=== PATIENT | female | born 1935 | race Caucasian/White ===

== ENCOUNTER 2018-02-25 03:45 | Inpatient (IN) | payer MEDICARE ==
[2018-02-25] VITALS (34 sets, daily range): BP systolic 104–186; BP diastolic 40–88
[~2018-02-25] VITALS: Ht 144.8 cm; Wt 45.4 kg
[2018-02-25] MEDS ORDERED: ALBUTEROL SULFATE 2.5 MG/3 ML NEBU. ONE (03:54)
[2018-02-25] MEDS ORDERED: 0.9 % SODIUM CHLORIDE 10 ML DISP.SYRIN. IV PRN (04:00)
[2018-02-25] MEDS ORDERED: FUROSEMIDE 40 MG/4 ML VIAL IVP ONE (04:00)
--- NOTE | 2018-02-25 04:02 | PHYS DOC ---
Adult General Chief Complaint Chief Complaint: respiratory distress HPI HPI Patient is a 83 year old female who presents with respiratory distress. The patient was brought to the emergency department by EMS. The patient [place] suddenly in the mall tonight with severe shortness of breath. Patient has reported history of congestive heart failure, coronary artery disease, hypertension, and COPD. Patient found to have oxygen saturation by EMS in the mid 80s. Patient also found to be profoundly hypertensive with a systolic above 200. Patient was started on CPAP and Nitropaste was applied to the chest prior to arrival. EMS reports improvement in symptoms with initial interventions. The patient has an severe respiratory distress and is unable to provide history currently but is following commands. The patient does nod when asked if she is feeling short of breath but denies chest pain currently. Review of Systems Review of Systems Constitutional: Denies fever or chills [] Eyes: Denies change in visual acuity, redness, or eye pain [] HENT: Denies nasal congestion or sore throat [] Respiratory: Shortness of breath[] Cardiovascular: Dyspnea on exertion, lower extremity swelling, denies chest pain [] GI: Denies abdominal pain, nausea, vomiting, bloody stools or diarrhea [] : Denies dysuria or hematuria [] Musculoskeletal: Denies back pain or joint pain [] Integument: Denies rash or skin lesions [] Neurologic: Denies headache, focal weakness or sensory changes [] All other systems were reviewed and found to be within normal limits, except as documented in this note. Current Medications Current Medications Current Medications Medications (Trade) Dose Ordered Sig/Freida Start Time Stop Time Status Last Admin Dose Admin Albuterol Sulfate (Ventolin) 2.5 mg STK-MED ONCE 02/25/18 03:54 02/25/18 03:55 DC Nitroglycerin/ Dextrose 250 ml @ 0 mls/hr 1X ONCE 02/25/18 04:00 02/25/18 04:01 UNV Sodium Chloride (Normal Saline Flush) 10 ml QSHIFT PRN 02/25/18 04:00 UNV Allergies Allergies Allergies Coded Allergies Type Severity Reaction Last Updated Verified pneumococcal vaccine Allergy Severe 02/25/18 Yes Physical Exam Physical Exam Constitutional: Alert, afebrile, appears in severe respiratory distress. [] HENT: Normocephalic, atraumatic, bilateral external ears normal, oropharynx moist, no oral exudates, nose normal. [] Eyes: PERRLA, EOMI, conjunctiva normal, no discharge. [] Neck: Normal range of motion, no tenderness, supple, no stridor. [] Cardiovascular:Heart rate regular rhythm, no murmur [] Lungs & Thorax: Accessory muscle usage bilaterally, prolonged expiratory phase, rales bilaterally[] Abdomen: Bowel sounds normal, soft, no tenderness, no masses, no pulsatile masses. [] Skin: Warm, dry, no erythema, no rash. [] Back: No tenderness, no CVA tenderness. [] Extremities: No tenderness, no cyanosis, no clubbing, ROM intact, 1+ pitting edema in the bilateral lower extremities. [] Neurologic: Alert and oriented X 3, normal motor function, normal sensory function, no focal deficits noted. [] Current Patient Data Vital Signs Vital Signs Date Time Temp Pulse Resp B/P (MAP) Pulse Ox O2 Delivery O2 Flow Rate FiO2 02/25/18 04:15 96 BiPAP/CPAP 02/25/18 03:59 97.4 77 36 Lab Results Laboratory Tests Test 02/25/18 04:00 White Blood Count 20.5 x10^3/uL Red Blood Count 4.97 x10^6/uL Hemoglobin 14.6 g/dL Hematocrit 44.7 % Mean Corpuscular Volume 90 fL Mean Corpuscular Hemoglobin 30 pg Mean Corpuscular Hemoglobin Concent 33 g/dL Red Cell Distribution Width 13.8 % Platelet Count 338 x10^3/uL Neutrophils (%) (Auto) 56 % Lymphocytes (%) (Auto) 33 % Monocytes (%) (Auto) 8 % Eosinophils (%) (Auto) 2 % Basophils (%) (Auto) 1 % Neutrophils # (Auto) 11.5 x10^3uL Lymphocytes # (Auto) 6.8 x10^3/uL Monocytes # (Auto) 1.6 x10^3/uL Eosinophils # (Auto) 0.4 x10^3/uL Basophils # (Auto) 0.2 x10^3/uL Segmented Neutrophils % 51 % Band Neutrophils % 4 % Lymphocytes % 40 % Monocytes % 4 % Eosinophils % 1 % Platelet Estimate Adequate Blood Gas pH 7.30 Blood Gas PCO2 62 mmHg Blood Gas PO2 203 mmHg Blood Gas HCO3 31 mmol/L Arterial Bld O2 Saturation (Calc) 100 % FiO2 60 % Sodium Level 140 mmol/L Potassium Level 4.4 mmol/L Chloride Level 100 mmol/L Carbon Dioxide Level 31 mmol/L Anion Gap 9 Blood Urea Nitrogen 11 mg/dL Creatinine 0.9 mg/dL Estimated GFR (Cockcroft-Gault) 59.5 BUN/Creatinine Ratio 12 Glucose Level 282 mg/dL Calcium Level 8.7 mg/dL Magnesium Level 1.8 mg/dL Total Bilirubin 0.5 mg/dL Aspartate Amino Transf (AST/SGOT) 39 U/L Alanine Aminotransferase (ALT/SGPT) 46 U/L Alkaline Phosphatase 113 U/L Creatine Kinase 50 U/L Creatine Kinase MB (Mass) 1.5 ng/mL Creatine Kinase MB Relative Index 3.0 % Troponin I Quantitative 0.086 ng/mL ZE-Zbs-R-Type Natriuretic Peptide 12272 pg/mL Total Protein 7.0 g/dL Albumin 3.3 g/dL Albumin/Globulin Ratio 0.9 Current Medications Medications (Trade) Dose Ordered Sig/Freida Route PRN Reason Start Time Stop Time Status Last Admin Dose Admin Sodium Chloride (Normal Saline Flush) 10 ml QSHIFT PRN IV AFTER MEDS AND BLOOD DRAWS 02/25/18 04:00 Nitroglycerin/ Dextrose 250 ml @ 0 mls/hr 1X ONCE IV 02/25/18 04:15 02/25/18 04:16 DC 02/25/18 04:17 Albuterol Sulfate (Ventolin) 2.5 mg 1X ONCE NEB 02/25/18 04:15 02/25/18 04:16 DC 02/25/18 04:30 Albuterol Sulfate (Ventolin) 2.5 mg STK-MED ONCE .ROUTE 02/25/18 03:54 02/25/18 03:55 DC Furosemide (Lasix) 80 mg 1X ONCE IVP 02/25/18 04:00 02/25/18 04:14 DC 02/25/18 04:10 EKG EKG Interpreted by me: Heart rate 75, sinus rhythm, occasional PVCs, normal axis, no acute ST elevations or depressions[] Radiology/Procedures Radiology/Procedures One view AP chest x-ray interpreted by me: Bilateral pulmonary vascular congestion, interstitial edema present, small bilateral pleural effusions[] Course & Med Decision Making Course & Med Decision Making Pertinent Labs and Imaging studies reviewed. (See chart for details) Plan arrival to the emergency department, the patient was transitioned to BiPAP therapy. After IV access was obtained, the patient was started on 80 mg of IV Lasix and started on nitroglycerin drip. Upon initiation of nitroglycerin drip, the Nitropaste was removed from the anterior chest. The patient's blood pressure responded well to IV nitroglycerin and Lasix. Patient's work of breathing has significantly improved with initial treatments and patient is stabilizing on BiPAP and nitroglycerin drip at this time. The patient's blood work and x-ray imaging supports diagnosis of acute on chronic congestive heart failure causing acute respiratory failure. The patient will need admission to the hospital for further care. I spoke with Dr. Zuniga who accepted care of patient in hospital. A consult was placed to Dr. Rivera of cardiology to follow patient in hospital. Critical care time excluding procedures: 45 minutes Dragon Disclaimer Dragon Disclaimer This electronic medical record was generated, in whole or in part, using a voice recognition dictation system. Departure Departure: Impression: Primary Impression: Acute respiratory failure with hypoxia and hypercapnia Additional Impression: Acute on chronic congestive heart failure Disposition: ADMITTED INPATIENT Admitting Physician: Dianne Zuniga Condition: GUARDED Referrals: PCP,UNKNOWN (PCP) Problem Qualifiers Additional Impression: Acute on chronic congestive heart failure Heart failure type: unspecified Qualified Codes: I50.9 - Heart failure, unspecified SHAJI CHICAS MD Feb 25, 2018 04:02
[2018-02-25] MEDS ORDERED: ALBUTEROL SULFATE 2.5 MG/3 ML NEBU. NEB ONE (04:15)
[2018-02-25] MEDS ORDERED: NITROGLYCERIN PREMIX 250 ML IV ONE (04:15)
[2018-02-25 04:22] LABS: BASO # 0.2 x10^3/uL (0.0-0.2); BASO % 1 % (0-3); EOS # 0.4 x10^3/uL (0.0-0.7); EOS % 2 % (0-3); HEMATOCRIT 44.7 % (36.0-47.0); HEMOGLOBIN 14.6 g/dL (12.0-15.5); LYMPH # 6.8 x10^3/uL (1.0-4.8); LYMPH % 33 % (24-48); MEAN CORPUSCULAR HEMOGLOBIN 30 pg (25-35); MEAN CORPUSCULAR HGB CONC 33 g/dL (31-37); MEAN CORPUSCULAR VOLUME 90 fL (79-100); MONO # 1.6 x10^3/uL (0.0-1.1); MONO % 8 % (0-9); NEUT # 11.5 x10^3uL (1.8-7.7); NEUT % 56 % (31-73); PLATELET COUNT 338 x10^3/uL (140-400); RED BLOOD COUNT 4.97 x10^6/uL (3.50-5.40); RED CELL DISTRIBUTION WIDTH 13.8 % (11.5-14.5); WHITE BLOOD COUNT 20.5 x10^3/uL (4.0-11.0)
[2018-02-25 04:45] LABS: ALBUMIN 3.3 g/dL (3.4-5.0); ALBUMIN/GLOBULIN RATIO 0.9 (1.0-1.7); CALCIUM 8.7 mg/dL (8.5-10.1); CREATININE 0.9 mg/dL (0.6-1.0); GFR 59.5; MAGNESIUM 1.8 mg/dL (1.8-2.4); POTASSIUM 4.4 mmol/L (3.5-5.1); TOTAL BILIRUBIN 0.5 mg/dL (0.2-1.0)
[2018-02-25 04:47] LABS: % BANDS 4 % (0-9); % EOS 1 % (0-5); % LYMPHS 40 % (24-48); % MONOS 4 % (0-10); % SEGS 51 % (35-66); PLT ESTIMATE ADEQUATE (ADEQUATE)
[2018-02-25 04:50] LABS: BGAS PH 7.3 (7.35-7.45)
[2018-02-25] MEDS ORDERED: ONDANSETRON PF 4 MG/2 ML VIAL. IV PRN (05:15)
[2018-02-25] MEDS ORDERED: IV NORMAL SALINE 1,000ML 1,000 ML IV SCH (05:15)
--- NOTE | 2018-02-25 06:03 | EKG ---
[address] [address] Test Date: 2018-02-25 Test Time: 04:26:09 Pat Name: SOPHIA HIGGINBOTHAM Department: Room: [facility]03 1 Gender: F Student [employer] Director: : 1935 Requested By: SHAJI CHICAS Order Number: [id number] Reading MD: King Rivera Measurements Intervals [place] Rate: 75 P: 90 NV: 140 QRS: 17 QRSD: 86 T: 71 QT: 414 QTc: 465 Interpretive Statements SINUS RHYTHM VENTRICULAR PREMATURE COMPLEX(ES) QRS(T) CONTOUR ABNORMALITY CONSISTENT WITH SEPTAL INFARCT PROBABLY OLD T ABNORMALITY IN HIGH LATERAL LEADS Electronically Signed On 03-02-2018 10:15:56 DOUBLE CUTTER by King Rivera
[2018-02-25 06:37] LABS: BGAS PH 7.33 (7.35-7.45)
--- NOTE | 2018-02-25 07:01 | RAD ---
Examination: PORTABLE CHEST 1V History: respiratory distress Comparison/Correlation: CT chest without contrast 01/18/2013 Findings: Portable upright frontal view of the chest was obtained. Heart size is normal. Hiatal hernia is moderate size. Pulmonary vasculature is borderline to mildly congested. Interstitial edema of the lung rivas noted. Consolidation involving the right lateral basilar aspect is present. No significant pleural effusions. Pulmonary hyperinflation noted. Impression: Right lateral basilar consolidation is new in the interval. Pulmonary vasculature congestion. Hiatal hernia. Electronically signed by: Anuj Green MD (02/25/2018 6:57 AM) [facility] [place]
[2018-02-25] MEDS: IPRATRPIUM/ALBUTEROL 0.5/2.5MG 3 ML NEBU. NEB SCH ×4 (08:00→20:55)
--- NOTE | 2018-02-25 09:07 | PDOC2 ---
CONSULT Date of Admission DATE: 02/25/18 TIME: 08:57 Reason for Consult: chf Problem List Problems Medical Problems: (1) Acute on chronic congestive heart failure Status: Acute (2) Acute respiratory failure with hypoxia and hypercapnia Status: Acute History of Present Illness Ms Herrera is an 83 year old female who presented via EMS this am for dyspnea. She apparenlty woke from sleep with feeling unable to breath. EMS found her with spo2 in the 80s and SBP>200. She was given NTG IV and started on BiPaP and admitted to the ICU for monitoring and treatment. Consult was called for elevated trop and heart failure. She currently remains on BiPaP with stable spo2 levels. She is very hard of hearing and a poor historian. Her daughter is at bedside but also provides very limited history. She reports breathing is improved, denies chest pain or other complaints. Her daughter reports her blood pressure is usually controlled. 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 No decreased flow related enhancement. Cardiovascular: CHF, HTN, Other (PAD) Pulmonary: COPD ENT: Other (hearing loss) Past Surgical History unknown Family History cad Social History +smoker, no known history of significant ETOH, or illicit drugs Current Medications Current Medications Sodium Chloride (Normal Saline Flush) 10 ml QSHIFT PRN IV AFTER MEDS AND BLOOD DRAWS; Start 02/25/18 at 04:00 Nitroglycerin/ Dextrose 250 ml @ 0 mls/hr 1X ONCE IV Last administered on at 04:17; Start 02/25/18 at 04:15; Stop 02/25/18 at 04:16; Status DC Albuterol Sulfate (Ventolin) 2.5 mg 1X ONCE NEB Last administered on at 04:30; Start 02/25/18 at 04:15; Stop 02/25/18 at 04:16; Status DC Albuterol Sulfate (Ventolin) 2.5 mg STK-MED ONCE .ROUTE ; Start 02/25/18 at 03: 54; Stop 02/25/18 at 03:55; Status DC Furosemide (Lasix) 80 mg 1X ONCE IVP Last administered on 02/25/18at 04:10; Start 02/25/18 at 04:00; Stop 02/25/18 at 04:14; Status DC Ondansetron HCl (Zofran) 4 mg PRN Q4HRS PRN IV NAUSEA/VOMITING; Start at 05:15; Stop 02/26/18 at 05:14 Sodium Chloride 1,000 ml @ 0 mls/hr Q0M IV ; Start 02/25/18 at 05:15; Stop at 05:14 Albuterol/ Ipratropium (Duoneb) 3 ml RTQID NEB ; Start 02/25/18 at 08:00; Stop 02/26/18 at 07:59 Enoxaparin Sodium (Lovenox 40mg Syringe) 40 mg Q24H SQ ; Start 02/25/18 at 09: 00 Allergies: Coded Allergies: pneumococcal vaccine (Verified Allergy, Severe, 02/25/18) Review of System as per HPI, otherwise limited due to BiPap, hearing loss and being a poor historian General: Alert, Cooperative, No acute distress HEENT: Atraumatic, Mucous membr. moist/pink, Other (hard of hearing) Lungs: Other (decreased throughout with bibasilar crackles) Heart: Normal S1, Normal S2, Other (no gallops, clicks or rubs) Abdomen: Normal bowel sounds, Soft, No tenderness Extremities: No cyanosis, No edema, Normal pulses Neuro: Normal speech Psych/Mental Status: Mental status NL, Mood NL VITALS Vital Signs Date Time Temp Pulse Resp B/P (MAP) Pulse Ox O2 Delivery O2 Flow Rate FiO2 02/25/18 06:27 98.0 61 28 186/69 (108) 97 BiPAP/CPAP Labs Laboratory Tests Test 02/25/18 04:00 02/25/18 05:00 02/25/18 07:49 White Blood Count 20.5 x10^3/uL (4.0-11.0) Red Blood Count 4.97 x10^6/uL (3.50-5.40) Hemoglobin 14.6 g/dL (12.0-15.5) Hematocrit 44.7 % (36.0-47.0) Mean Corpuscular Volume 90 fL (79-100) Mean Corpuscular Hemoglobin 30 pg (25-35) Mean Corpuscular Hemoglobin Concent 33 g/dL (31-37) Red Cell Distribution Width 13.8 % (11.5-14.5) Platelet Count 338 x10^3/uL (140-400) Neutrophils (%) (Auto) 56 % (31-73) Lymphocytes (%) (Auto) 33 % (24-48) Monocytes (%) (Auto) 8 % (0-9) Eosinophils (%) (Auto) 2 % (0-3) Basophils (%) (Auto) 1 % (0-3) Neutrophils # (Auto) 11.5 x10^3uL (1.8-7.7) Lymphocytes # (Auto) 6.8 x10^3/uL (1.0-4.8) Monocytes # (Auto) 1.6 x10^3/uL (0.0-1.1) Eosinophils # (Auto) 0.4 x10^3/uL (0.0-0.7) Basophils # (Auto) 0.2 x10^3/uL (0.0-0.2) Segmented Neutrophils % 51 % (35-66) Band Neutrophils % 4 % (0-9) Lymphocytes % 40 % (24-48) Monocytes % 4 % (0-10) Eosinophils % 1 % (0-5) Platelet Estimate Adequate (ADEQUATE) Blood Gas pH 7.30 (7.35-7.45) 7.33 (7.35-7.45) Blood Gas PCO2 62 mmHg (35-45) 57 mmHg (35-45) Blood Gas PO2 283 mmHg (71-100) 82 mmHg (71-100) Blood Gas HCO3 31 mmol/L (22-26) 30 mmol/L (22-26) Arterial Bld O2 Saturation (Calc) 100 % (92-99) 95 % (92-99) FiO2 60 % 30 % Sodium Level 140 mmol/L (136-145) Potassium Level 4.4 mmol/L (3.5-5.1) Chloride Level 100 mmol/L (98-107) Carbon Dioxide Level 31 mmol/L (21-32) Anion Gap 9 (6-14) Blood Urea Nitrogen 11 mg/dL (7-20) Creatinine 0.9 mg/dL (0.6-1.0) Estimated GFR (Cockcroft-Gault) 59.5 BUN/Creatinine Ratio 12 (6-20) Glucose Level 282 mg/dL (70-99) Calcium Level 8.7 mg/dL (8.5-10.1) Magnesium Level 1.8 mg/dL (1.8-2.4) Total Bilirubin 0.5 mg/dL (0.2-1.0) Aspartate Amino Transf (AST/SGOT) 39 U/L (15-37) Alanine Aminotransferase (ALT/SGPT) 46 U/L (14-59) Alkaline Phosphatase 113 U/L (46-116) Creatine Kinase 50 U/L (26-192) Creatine Kinase MB (Mass) 1.5 ng/mL (0.0-3.6) Creatine Kinase MB Relative Index 3.0 % (0-4) Troponin I Quantitative 0.086 ng/mL (0-0.055) 0.436 ng/mL (0-0.055) ZB-Vxj-M-Type Natriuretic Peptide 73822 pg/mL (0-449) Total Protein 7.0 g/dL (6.4-8.2) Albumin 3.3 g/dL (3.4-5.0) Albumin/Globulin Ratio 0.9 (1.0-1.7) Images CXR - Impression: Right lateral basilar consolidation is new in the interval. Pulmonary vasculature congestion. Hiatal hernia. EKG - Sinus rhythm, PVCs, nonspecific st/t abn Assessment/Plan 1. Nstemi - likely demand related. Angina free. No acute EKG changes. 2. acute respiratory failure, multifactorial - remains on BiPaP, room air spo2 89%. 3. acute on chronic heart failure - Unknown LVEF 4. COPD / poss PNA - mgmt per PCP 5. accelerated hypertension - improving on NTG, add ACEI and hydralazine 6. Bradycardia - mild, stable. Improving on BiPap and with lasix. Continue diuresis. Continue NTG drip and add oral meds for BP control. Monitor trops. add aspirin and heparin. No beta mckinley secondary to bradycardia. Plan to manage heart failure and consider MPI vs cath after pulmonary stable depending clinical progress. Request records. THELMA HERRERA APRN Feb 25, 2018 09:07
[2018-02-25] MEDS ORDERED: POTASSIUM CHLORIDE 20 MEQ TABLET.ER. PO SCH (09:30)
[2018-02-25] MEDS ORDERED: ASPIRIN 81 MG TAB.CHEW PO ONE (09:30)
[2018-02-25] MEDS ORDERED: LISINOPRIL 5 MG TABLET. PO SCH (09:30)
[2018-02-25] MEDS: ENOXAPARIN 40 MG/0.4 ML SYRINGE. SQ SCH (10:52)
[2018-02-25] MEDS: FUROSEMIDE 40 MG/4 ML VIAL IVP SCH ×2 (10:52→16:29)
[2018-02-25] MEDS ORDERED: KETOROLAC 30 MG/ML VIAL. IV PRN (11:15)
[2018-02-25] MEDS ORDERED: MORPHINE SULFATE 2 MG/ML DISP.SYRIN. IV PRN (11:30)
--- NOTE | 2018-02-25 11:37 | CARD ---
MR#: [id number] Date of Study: 02/25/2018 Ordering Physician: THELMA HIGGINBOTHAM, Referring Physician: MYKE SCHREIBER Tech: Amanda Spears MIRLANDE APPROVED REPORT EXAM: Two-dimensional and M-mode echocardiogram with Doppler and color Doppler. Other Information Quality : GoodHR: 52bpm Rhythm : Bradycardia INDICATION Congestive Heart Failure 2D DIMENSIONS RVDd2.4 (2.9-3.5cm)Left Atrium(2D)3.4 (1.6-4.0cm) IVSd0.9 (0.7-1.1cm)Aortic Root(2D)2.9 (2.0-3.7cm) LVDd3.8 (3.9-5.9cm)LVOT Diameter1.8 (1.8-2.4cm) PWd0.8 (0.7-1.1cm)LVDs2.9 (2.5-4.0cm) FS (%) 24.2 %SV30.9 ml M-Mode DIMENSIONS Left Atrium(MM)3.96 (2.5-4.0cm)Aortic Root2.73 (2.2-3.7cm) Aortic Valve AoV Peak Andrew.148.6cm/sAoV VTI35.5cm AO Peak GR.8.8mmHgLVOT Peak Andrew.70.4cm/s LVOT VTI 16.42cmAO Mean GR.5mmHg GALLO (VMAX)1.60qz9BDK (VTI)1.23cm2 AI P 1/2 Hpac115ly Mitral Valve MV E Btanwvcg73.0cm/sMV DECEL FMMO372eu MV A Tiiukeww89.4cm/sE/A Ratio1.2 MV A Txqbwyjv954us Pulmonary Valve PV Peak Qwogshys41.1cm/sPV Peak Grad.2mmHg Tricuspid Valve TR P. Fzgrcgld948ng/sRAP LWUYBTZP0feZr TR Peak Gr.37woThPMUO63tqUs Pulmonary Vein S1 Rsrmhgwg83.3cm/sD2 Nntnwsmw36.8cm/s LEFT VENTRICLE The Left Ventricle is borderline dilated. There is normal left ventricular wall thickness. Left ventr icle systolic function is moderately decreased. The Ejection Fraction is 35-40%. There is global hypo kinesis of the left ventricle mildly increased in the septal wall. Transmitral Doppler flow pattern i s Grade II-pseudonormal filling dynamics. RIGHT VENTRICLE The right ventricle is normal size. There is normal right ventricular wall thickness. The right ventr icular systolic function is normal. ATRIA The left atrium size is normal. The right atrium size is normal. The atrial septum is mildly aneurysm al. AORTIC VALVE The aortic valve is moderately calcified. The aortic valve is probably trileaflet. Doppler and Color Flow revealed mild aortic regurgitation. There is mild valvular aortic stenosis. Calculated aortic va lve area is 1.3 cm2 with maximum pressure gradient of 9 mmHg and mean pressure gradient of 5 mmHg. MITRAL VALVE The mitral valve is thickened but opens well. There is no evidence of mitral valve prolapse. There is no mitral valve stenosis. Doppler and Color-flow revealed mild mitral regurgitation. TRICUSPID VALVE The tricuspid valve leaflets are thickened , but open well. Doppler and Color Flow revealed mild to m oderate tricuspid regurgitation. The PA pressure was estimated at 33 mmHg. There is no tricuspid valv e prolapse or vegetation. There is no tricuspid valve stenosis. PULMONIC VALVE Pulmonic valve not well visualized. GREAT VESSELS The aortic root is normal in size. The ascending aorta is normal in size. The IVC is normal in size a nd collapses >50% with inspiration. PERICARDIAL EFFUSION There is no evidence of significant pericardial effusion. Critical Notification Critical Value: No <Conclusion> The Left Ventricle is borderline dilated. Left ventricle systolic function is moderately decreased. The Ejection Fraction is 35-40%. There is global hypokinesis of the left ventricle mildly increased in the septal wall. There is mild valvular aortic stenosis. Calculated aortic valve area is 1.3 cm2 with maximum pressure gradient of 9 mmHg and mean pressure gr adient of 5 mmHg. Doppler and Color Flow revealed mild aortic regurgitation. Doppler and Color-flow revealed mild mitral regurgitation. Doppler and Color Flow revealed mild to moderate tricuspid regurgitation. The PA pressure was estimated at 33 mmHg. Signed by : Etienne Florentino MD Electronically Approved : 02/25/2018 11:36:33
[2018-02-25 12:09] LABS: CALCIUM 8.8 mg/dL (8.5-10.1); CREATININE 0.7 mg/dL (0.6-1.0); GFR 79.5; POTASSIUM 3.8 mmol/L (3.5-5.1)
--- NOTE | 2018-02-25 12:09 | EKG ---
[address] [address] Test Date: 2018-02-25 Test Time: 10:28:17 Pat Name: SOPHIA HIGGINBOTHAM Department: Room: [facility]03 1 Gender: F Reference Investigator: SAKSHI : 1935 Requested By: THELMA HIGGINBOTHAM Order Number: [id number] Reading MD: King Rivera Measurements Intervals [place] Rate: 58 P: 90 SC: 136 QRS: -1 QRSD: 80 T: -147 QT: 430 QTc: 426 Interpretive Statements SINUS RHYTHM LEFTWARD AXIS QRS(T) CONTOUR ABNORMALITY CONSISTENT WITH SEPTAL INFARCT AGE UNDETERMINED T ABNORMALITY IN ANTEROLATERAL LEADS ABNORMAL ECG Electronically Signed On 03-02-2018 10:18:03 ADMIN SECRETARY by King Rivera
[2018-02-25 12:12] LABS: BACTERIA,URINE 0 /HPF (0-FEW); BILIRUBIN,URINE NEG (NEG); CLARITY,URINE CLEAR; COLOR,URINE YELLOW; GLUCOSE,URINE NEG (NEG); HYALINE CASTS, URINE OCC /HPF; NITRITE,URINE NEG (NEG); UROBILINOGEN,URINE 0.2 mg/dL (0.2 mg/dL); WBC,URINE RARE /HPF (0-4)
[2018-02-25] MEDS ORDERED: CLON0.1T PO (12:29)
[2018-02-25] MEDS ORDERED: SERT25TA4 PO (12:29)
[2018-02-25] MEDS ORDERED: METO-247 PO (12:29)
[2018-02-25] MEDS ORDERED: ZOLP10TA4 PO (12:29)
[2018-02-25] MEDS ORDERED: OMEP40CA5 PO (12:29)
[2018-02-25] MEDS ORDERED: LEVO25TA4 PO (12:29)
[2018-02-25] MEDS ORDERED: FURO20TA3 PO (12:29)
[2018-02-25] MEDS ORDERED: LISI40TA PO (12:29)
[2018-02-25] MEDS ORDERED: LORA0.5T PO (12:29)
[2018-02-25] MEDS ORDERED: POTA10TA10 PO (12:29)
[2018-02-25] MEDS ORDERED: AZITHROMYCIN 250 MG TABLET. PO ONE (16:45)
[2018-02-25] MEDS ORDERED: LISINOPRIL 5 MG TABLET. PO ONE (16:45)
[2018-02-25] MEDS ORDERED: LORazepam 0.5 MG TABLET PO PRN (17:15)
[2018-02-25] MEDS ORDERED: ZOLPIDEM 5 MG TABLET. PO PRN (17:30)
--- NOTE | 2018-02-25 17:38 | HP ---
ADMIT DATE: 02/25/2018 HISTORY OF PRESENT ILLNESS: The patient is an 83-year-old female patient, who came to the Emergency Room and marked respiratory distress. She was brought by the emergency medical service personnel. She awoke suddenly in the middle of the night with severe shortness of breath. By the time, she arrived to the Emergency Room, she was found to have an oxygen saturation of only 80%. She was found also to be profoundly hypertensive with a systolic pressure of more than 200. She was started on CPAP and nitro paste was applied to the chest prior to arrival. There also the emergency medical service reports improvement in her symptoms with initial intervention. She was in such severe respiratory distress. She states she is unable to provide any history and was started on BiPAP and nitroglycerin drip. She was also treated with IV diuretics and was admitted to the ICU to continue treatment and to consult the cardiology team. PAST MEDICAL HISTORY: Significant for hypertension, congestive heart failure, chronic obstructive pulmonary disease, bilateral sensorineural deafness. 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 PAST SURGICAL HISTORY: She said that she has bilateral cataract extraction, appendectomy and tonsillectomy. FAMILY HISTORY: Significant for coronary artery disease. SOCIAL HISTORY: She is , lives on her own. She has one daughter that lives nearby. She used to be a smoker, but does not drink alcohol or use any recreational drugs. ALLERGIES: She is ALLERGIC TO PNEUMOCOCCAL VACCINE. MEDICATIONS: She is currently on following medications: She is on clonidine 0.1 mg daily, metoprolol succinate 100 mg once a day, lisinopril 40 mg once a day, sertraline 25 mg daily, lorazepam 0.5 mg daily as needed for anxiety. She is on Ambien 10 mg at bedtime, potassium chloride 10 mEq once a day, furosemide 20 mg daily, omeprazole 40 mg once a day and levothyroxine sodium 25 mcg once a day. REVIEW OF SYSTEMS: As per history of present illness. PHYSICAL EXAMINATION: GENERAL: On arrival to the Emergency Room, the patient was extreme respiratory distress, tachypneic, hypoxic. VITAL SIGNS: Her heart rate was 77, blood pressure was 195/101, temperature was 97.4, respiratory rate was 36 and oxygen saturation was 80% on room air, has improved to 99% on BiPAP machine. HEAD, EYES, EARS, NOSE AND THROAT: Showed normocephalic, atraumatic. NECK: Supple. HEART: Showed normal first and second sounds. No gallop, rub or murmur. CHEST: Showed accessory muscle usage bilaterally, prolonged expiratory phase and bilateral crepitation. ABDOMEN: Slightly distended, soft, nontender. No guarding or rigidity. No organomegaly. All hernial orifice intact. Bowel sounds normal. NEUROLOGIC: She is very hard of hearing, otherwise all cranial nerves intact. EXTREMITIES: She moves extremities without difficulty. Examination of the extremities showed no clubbing, cyanosis with mild bilateral lower extremity edema. LABORATORY DATA: While in the Emergency Room, she was started on BiPAP machine and started nitro drip and IV Lasix. Her EKG showed that she was in sinus rhythm with occasional PVCs, normal axis, and no acute ST elevation. Chest x-ray showed she has bilateral pulmonary vascular congestion, interstitial edema present. Small bilateral pleural effusion and her lab work showed that her white cell count was high at 20,500, hemoglobin 14.6, hematocrit 44.7, MCV 90 and platelet count of 338,000. Her chemistry showed that her serum sodium was 140, potassium 4.4, chloride 100, bicarbonate 31, anion gap of 9, BUN 11, creatinine 0.9, estimated GFR was 59 mL per minute. Her glucose was 282, calcium was 8.7, magnesium was 1.8. Total bilirubin, AST, ALT, alkaline phosphatase were normal. Her first set of cardiac enzymes showed troponin to be less than is 0.086. [place] [address]. Total protein 7, albumin was 3.3. Her blood gases showed that her pH was 7.30, pCO2 of 62, pO2 of 283, bicarbonate 31, and oxygen saturation was 100% on FiO2 of 60%. Her urinalysis showed the urine was yellow, clear with a pH of 6.5, specific gravity of 1.010. The urine was negative for protein, glucose, ketone, blood, nitrite and leukocyte esterase. There are 11-20 rbc's, rare wbc's, and no bacteria. Her fasting lipid profile showed her serum triglycerides 110. Total cholesterol was 280, LDL cholesterol 191, VLDL was 22, and HDL cholesterol was 67, the ratio was 4. The chest x-ray showed that the patient has right lateral basilar consolidation is new in the interval, pulmonary vascular congestion, hiatal hernia. ASSESSMENT AND PLAN: The patient was admitted with acute hypoxic hypercapnic respiratory failure, accelerated hypertension, acute congestive heart failure as well as questionable right lower lobe pneumonia. She has also leukocytosis. The patient was treated with IV Lasix as well as nitroglycerin drip. Her iron medications were resumed. Apparently, her blood pressure has much improved. By the time, I saw her, she was off the BiPAP and she was on oxygen by nasal cannula. We did consult the heavy mobile equipment repairer. She is in fact had an echocardiogram, showing that she has left ventricle is borderline dilated. She has left ventricular systolic function is moderately decreased ejection fraction 35-40%. There is global hypokinesis of the left ventricle with mildly increased in the septal wall. She has mild valvular aortic stenosis, aortic valve area is 1.3 square cm with maximum pressure gradient of 9 mmHg, mean pressure gradient of 5 mmHg. She has also mild aortic regurgitation, mild mitral regurgitation, [id number] tricuspid regurgitation. Pulmonary artery pressure was estimated at 33 mmHg. We will do 2 more sets of cardiac enzyme and obviously await the evaluation by the heavy mobile equipment repairer. MYKE SCHREIBER MD DR: TATYANA/aditi JOB#: [id number] / [id number]
[2018-02-25] MEDS: ATORVASTATIN CALCIUM 20 MG TABLET PO SCH (20:48)
[2018-02-25] MEDS: LACTOBACILLUS RHAMNOSUS GG 1 CAPSULE. PO SCH (20:48)
[2018-02-25] MEDS: hydrALAZINE 25 MG TABLET PO SCH (20:48)
[2018-02-25] MEDS ORDERED: ZOLPIDEM 5 MG TABLET. PO SCH (21:00)
[2018-02-25] MEDS: ZOLPIDEM 5 MG TABLET. PO SCH (23:26)
[2018-02-26] VITALS (23 sets, daily range): BP systolic 98–193; BP diastolic 46–82
[2018-02-26] MEDS: hydrALAZINE 20 MG/ML VIAL. IV PRN ×2 (05:28→20:15)
[2018-02-26] MEDS: LEVOTHYROXINE 25 MCG TABLET. PO SCH (05:31)
[2018-02-26] MEDS: IPRATRPIUM/ALBUTEROL 0.5/2.5MG 3 ML NEBU. NEB SCH ×2 (05:52→20:25)
[2018-02-26 06:25] LABS: BASO % 1 % (0-3); EOS # 0.1 x10^3/uL (0.0-0.7); EOS % 1 % (0-3); HEMATOCRIT 40.5 % (36.0-47.0); HEMOGLOBIN 13.5 g/dL (12.0-15.5); LYMPH # 1.3 x10^3/uL (1.0-4.8); LYMPH % 20 % (24-48); MEAN CORPUSCULAR HEMOGLOBIN 29 pg (25-35); MEAN CORPUSCULAR HGB CONC 33 g/dL (31-37); MEAN CORPUSCULAR VOLUME 88 fL (79-100); MONO # 0.6 x10^3/uL (0.0-1.1); MONO % 9 % (0-9); NEUT # 4.7 x10^3uL (1.8-7.7); NEUT % 70 % (31-73); PLATELET COUNT 208 x10^3/uL (140-400); RED BLOOD COUNT 4.59 x10^6/uL (3.50-5.40); RED CELL DISTRIBUTION WIDTH 13.7 % (11.5-14.5); WHITE BLOOD COUNT 6.7 x10^3/uL (4.0-11.0)
[2018-02-26 06:30] LABS: ALBUMIN 2.8 g/dL (3.4-5.0); ALBUMIN/GLOBULIN RATIO 0.7 (1.0-1.7); CALCIUM 8.4 mg/dL (8.5-10.1); CREATININE 0.7 mg/dL (0.6-1.0); GFR 79.5; POTASSIUM 3.1 mmol/L (3.5-5.1); TOTAL BILIRUBIN 0.4 mg/dL (0.2-1.0); TOTAL PROTEIN 6.6 g/dL (6.4-8.2)
[2018-02-26] MEDS ORDERED: POTASSIUM CHLORIDE 10 MEQ TABLET.ER. PO SCH (08:00)
[2018-02-26] MEDS: LISINOPRIL 20 MG TABLET PO SCH (08:43)
[2018-02-26] MEDS: LACTOBACILLUS RHAMNOSUS GG 1 CAPSULE. PO SCH ×2 (08:44→20:16)
[2018-02-26] MEDS: SERTRALINE 25 MG TABLET. PO SCH (08:44)
[2018-02-26] MEDS: METOPROLOL SUCC 24HR ER 50 MG TAB.ER.24H. PO SCH (08:45)
[2018-02-26] MEDS: PANTOPRAZOLE 40 MG TABLET. PO SCH (08:45)
[2018-02-26] MEDS: ENOXAPARIN 40 MG/0.4 ML SYRINGE. SQ SCH (08:45)
[2018-02-26] MEDS: ASPIRIN ENTERIC COATED 325 MG TABLET.DR. PO SCH (08:45)
[2018-02-26] MEDS: hydrALAZINE 25 MG TABLET PO SCH (08:45)
[2018-02-26] MEDS: FUROSEMIDE 40 MG/4 ML VIAL IVP SCH (08:46)
[2018-02-26] MEDS ORDERED: POTASSIUM CHLORIDE 20 MEQ TABLET.ER. PO SCH (09:00)
[2018-02-26] MEDS ORDERED: LISINOPRIL 10 MG TABLET PO SCH (09:00)
--- NOTE | 2018-02-26 09:05 | PDOC ---
PROGRESS NOTES Diagnosis Problem Problems Medical Problems: (1) Acute on chronic congestive heart failure Status: Acute (2) Acute respiratory failure with hypoxia and hypercapnia Status: Acute Assessment Problems Medical Problems: (1) Acute on chronic congestive heart failure Status: Acute (2) Acute respiratory failure with hypoxia and hypercapnia Status: Acute 1. Nstemi - demand related. Remains Angina free. No acute EKG changes. Plan for outpatient MPI once acute illness resolved. 2. acute respiratory failure, multifactorial - on nasal cannula oxygen and maintaining oxygen saturation.. 3. acute on chronic, systolic and diastolic heart failure - EF 35-40% with global hypokinesis. Currently compensated clinically. Repeat CXR, if vascular congestion resolved, will decrease lasix and change to PO. 4. COPD / PNA - continued mgmt per PCP 5. accelerated hypertension - low pressure this am. Discontinue hydralazine. Continue home antihypertensives and monitor. may need reduction if pressure remains borderline. 6. Bradycardia - resolved. She is currently on home metoprolol dose. If bradycardia reoccurs, suggest decreased dosing. Subjective c/o increased cough with clear sputum. c/o nausea and near vomiting due to cough. Difficult to catch breath after coughing episode. Denies other complaints. Objective Vital Signs Date Time Temp Pulse Resp B/P (MAP) Pulse Ox O2 Delivery O2 Flow Rate FiO2 02/26/18 08:45 77 135/55 02/26/18 08:02 98.6 98 Nasal Cannula 2.0 02/26/18 05:30 21 Intake and Output 02/26/18 07:00 Intake Total 662.84 ml Output Total 2405 ml Balance -1742.16 ml Intake Oral 570 ml IV Total 92.84 ml Output Urine Total 2405 ml Abdomen: Normal bowel sounds, Soft, No tenderness Heart: Normal S1, Normal S2, Other (+murmur) Extremities: No cyanosis, Other (trace edema) General: Alert, Oriented X3, Cooperative, mild distress HEENT: Atraumatic, EOMI, Mucous membr. moist/pink Lungs: Other (lungs essentially clear, upper airway rhonchi noted which clears with cough) Neuro: Normal speech Psych/Mental Status: Mental status NL, Mood NL Review of Relevant I have reviewed the following items ayanna (where applicable) has been applied. Labs Laboratory Tests Test 02/25/18 04:00 02/25/18 05:00 02/25/18 07:49 02/25/18 11:30 White Blood Count 20.5 x10^3/uL (4.0-11.0) Red Blood Count 4.97 x10^6/uL (3.50-5.40) Hemoglobin 14.6 g/dL (12.0-15.5) Hematocrit 44.7 % (36.0-47.0) Mean Corpuscular Volume 90 fL (79-100) Mean Corpuscular Hemoglobin 30 pg (25-35) Mean Corpuscular Hemoglobin Concent 33 g/dL (31-37) Red Cell Distribution Width 13.8 % (11.5-14.5) Platelet Count 338 x10^3/uL (140-400) Neutrophils (%) (Auto) 56 % (31-73) Lymphocytes (%) (Auto) 33 % (24-48) Monocytes (%) (Auto) 8 % (0-9) Eosinophils (%) (Auto) 2 % (0-3) Basophils (%) (Auto) 1 % (0-3) Neutrophils # (Auto) 11.5 x10^3uL (1.8-7.7) Lymphocytes # (Auto) 6.8 x10^3/uL (1.0-4.8) Monocytes # (Auto) 1.6 x10^3/uL (0.0-1.1) Eosinophils # (Auto) 0.4 x10^3/uL (0.0-0.7) Basophils # (Auto) 0.2 x10^3/uL (0.0-0.2) Segmented Neutrophils % 51 % (35-66) Band Neutrophils % 4 % (0-9) Lymphocytes % 40 % (24-48) Monocytes % 4 % (0-10) Eosinophils % 1 % (0-5) Platelet Estimate Adequate (ADEQUATE) Blood Gas pH 7.30 (7.35-7.45) 7.33 (7.35-7.45) Blood Gas PCO2 62 mmHg (35-45) 57 mmHg (35-45) Blood Gas PO2 283 mmHg (71-100) 82 mmHg (71-100) Blood Gas HCO3 31 mmol/L (22-26) 30 mmol/L (22-26) Arterial Bld O2 Saturation (Calc) 100 % (92-99) 95 % (92-99) FiO2 60 % 30 % Sodium Level 140 mmol/L (136-145) Potassium Level 4.4 mmol/L (3.5-5.1) Chloride Level 100 mmol/L (98-107) Carbon Dioxide Level 31 mmol/L (21-32) Anion Gap 9 (6-14) Blood Urea Nitrogen 11 mg/dL (7-20) Creatinine 0.9 mg/dL (0.6-1.0) Estimated GFR (Cockcroft-Gault) 59.5 BUN/Creatinine Ratio 12 (6-20) Glucose Level 282 mg/dL (70-99) Calcium Level 8.7 mg/dL (8.5-10.1) Magnesium Level 1.8 mg/dL (1.8-2.4) 1.8 mg/dL (1.8-2.4) Total Bilirubin 0.5 mg/dL (0.2-1.0) Aspartate Amino Transf (AST/SGOT) 39 U/L (15-37) Alanine Aminotransferase (ALT/SGPT) 46 U/L (14-59) Alkaline Phosphatase 113 U/L (46-116) Creatine Kinase 50 U/L (26-192) Creatine Kinase MB (Mass) 1.5 ng/mL (0.0-3.6) Creatine Kinase MB Relative Index 3.0 % (0-4) Troponin I Quantitative 0.086 ng/mL (0-0.055) 0.436 ng/mL (0-0.055) UZ-Mqa-[id number]-Type Natriuretic Peptide 68711 pg/mL (0-449) Total Protein 7.0 g/dL (6.4-8.2) Albumin 3.3 g/dL (3.4-5.0) Albumin/Globulin Ratio 0.9 (1.0-1.7) Triglycerides Level 110 mg/dL (0-150) Cholesterol Level 280 mg/dL (0-200) LDL Cholesterol, Calculated 191 mg/dL (0-100) VLDL Cholesterol, Calculated 22 mg/dL (0-40) Non-HDL Cholesterol Calculated 213 mg/dL (0-129) HDL Cholesterol 67 mg/dL (40-60) Cholesterol/HDL Ratio 4.0 Urine Collection Type Unknown Urine Color Yellow Urine Clarity Clear Urine pH 6.5 Urine Specific [place] 1.010 Urine Protein Neg (NEG-TRACE) Urine Glucose (UA) Neg mg/dL (NEG) Urine Ketones (Stick) Neg mg/dL (NEG) Urine Blood Mod (NEG) Urine Nitrite Neg (NEG) Urine Bilirubin Neg (NEG) Urine Urobilinogen Dipstick 0.2 mg/dL (0.2 mg/dL) Urine Leukocyte Esterase Trace (NEG) Urine RBC 11-20 /HPF (0-2) Urine WBC Rare /HPF (0-4) Urine Squamous Epithelial Cells None /LPF Urine Bacteria 0 /HPF (0-FEW) Urine Hyaline Casts Occ /HPF Urine Mucus Slight /LPF Nasal Screen MRSA (PCR) Negative (Negative) Test 02/25/18 11:40 02/25/18 15:25 02/26/18 05:39 Sodium Level 141 mmol/L (136-145) 131 mmol/L (136-145) Potassium Level 3.8 mmol/L (3.5-5.1) 3.1 mmol/L (3.5-5.1) Chloride Level 99 mmol/L (98-107) 91 mmol/L (98-107) Carbon Dioxide Level 34 mmol/L (21-32) 35 mmol/L (21-32) Anion Gap 8 (6-14) 5 (6-14) Blood Urea Nitrogen 11 mg/dL (7-20) 15 mg/dL (7-20) Creatinine 0.7 mg/dL (0.6-1.0) 0.7 mg/dL (0.6-1.0) Estimated GFR (Cockcroft-Gault) 79.5 79.5 Glucose Level 118 mg/dL (70-99) 105 mg/dL (70-99) Calcium Level 8.8 mg/dL (8.5-10.1) 8.4 mg/dL (8.5-10.1) Troponin I Quantitative 0.521 ng/mL (0-0.055) Lactic Acid Level 1.2 mmol/L (0.4-2.0) White Blood Count 6.7 x10^3/uL (4.0-11.0) Red Blood Count 4.59 x10^6/uL (3.50-5.40) Hemoglobin 13.5 g/dL (12.0-15.5) Hematocrit 40.5 % (36.0-47.0) Mean Corpuscular Volume 88 fL (79-100) Mean Corpuscular Hemoglobin 29 pg (25-35) Mean Corpuscular Hemoglobin Concent 33 g/dL (31-37) Red Cell Distribution Width 13.7 % (11.5-14.5) Platelet Count 208 x10^3/uL (140-400) Neutrophils (%) (Auto) 70 % (31-73) Lymphocytes (%) (Auto) 20 % (24-48) Monocytes (%) (Auto) 9 % (0-9) Eosinophils (%) (Auto) 1 % (0-3) Basophils (%) (Auto) 1 % (0-3) Neutrophils # (Auto) 4.7 x10^3uL (1.8-7.7) Lymphocytes # (Auto) 1.3 x10^3/uL (1.0-4.8) Monocytes # (Auto) 0.6 x10^3/uL (0.0-1.1) Eosinophils # (Auto) 0.1 x10^3/uL (0.0-0.7) Basophils # (Auto) 0.0 x10^3/uL (0.0-0.2) BUN/Creatinine Ratio 21 (6-20) Magnesium Level 1.5 mg/dL (1.8-2.4) Total Bilirubin 0.4 mg/dL (0.2-1.0) Aspartate Amino Transf (AST/SGOT) 21 U/L (15-37) Alanine Aminotransferase (ALT/SGPT) 27 U/L (14-59) Alkaline Phosphatase 83 U/L (46-116) Total Protein 6.6 g/dL (6.4-8.2) Albumin 2.8 g/dL (3.4-5.0) Albumin/Globulin Ratio 0.7 (1.0-1.7) Medications Current Medications Sodium Chloride (Normal Saline Flush) 10 ml QSHIFT PRN IV AFTER MEDS AND BLOOD DRAWS; Start 02/25/18 at 04:00 Nitroglycerin/ Dextrose 250 ml @ 0 mls/hr 1X ONCE IV Last administered on at 04:17; Start 02/25/18 at 04:15; Stop 02/25/18 at 04:16; Status DC Albuterol Sulfate (Ventolin) 2.5 mg 1X ONCE NEB Last administered on at 04:30; Start 02/25/18 at 04:15; Stop 02/25/18 at 04:16; Status DC Albuterol Sulfate (Ventolin) 2.5 mg STK-MED ONCE .ROUTE ; Start 02/25/18 at 03: 54; Stop 02/25/18 at 03:55; Status DC Furosemide (Lasix) 80 mg 1X ONCE IVP Last administered on 02/25/18at 04:10; Start 02/25/18 at 04:00; Stop 02/25/18 at 04:14; Status DC Ondansetron HCl (Zofran) 4 mg PRN Q4HRS PRN IV NAUSEA/VOMITING; Start at 05:15; Stop 02/26/18 at 05:14; Status DC Sodium Chloride 1,000 ml @ 0 mls/hr Q0M IV ; Start 02/25/18 at 05:15; Stop at 05:14; Status DC Albuterol/ Ipratropium (Duoneb) 3 ml RTQID NEB Last administered on 02/26/18at 05:52; Start 02/25/18 at 08:00; Stop 02/26/18 at 08:00; Status DC Enoxaparin Sodium (Lovenox 40mg Syringe) 40 mg Q24H SQ Last administered on at 08:45; Start 02/25/18 at 09:00 Aspirin (Aspirin Enteric Coated) 325 mg DAILYWBKFT PO Last administered on at 08:45; Start 02/26/18 at 08:00 Aspirin (Children'S Aspirin) 324 mg 1X ONCE PO Last administered on at 10:50; Start 02/25/18 at 09:30; Stop 02/25/18 at 09:35; Status DC Lisinopril (Prinivil) 5 mg DAILY PO Last administered on 02/25/18at 10:51; Start 02/25/18 at 09:30; Stop 02/25/18 at 16:04; Status DC Furosemide (Lasix) 40 mg BID92 IVP Last administered on 02/26/18at 08:46; Start 02/25/18 at 09:30 Potassium Chloride (Klor-Con) 20 meq DAILYWBKFT PO Last administered on at 10:53; Start 02/25/18 at 09:30; Stop 02/26/18 at 07:33; Status DC Hydralazine HCl (Apresoline) 10 mg PRN Q4HRS PRN IV ELEVATED BP, SEE COMMENTS Last administered on 02/26/18at 05:28; Start 02/25/18 at 09:30 Ketorolac Tromethamine (Toradol 30mg Vial) 30 mg PRN Q6HRS PRN IV PAIN Last administered on 02/25/18at 13:32; Start 02/25/18 at 11:15; Stop 03/02/18 at 11 :14 Morphine Sulfate (Morphine 2mg Syringe) 2 mg PRN Q2HR PRN IV PAIN Last administered on 02/25/18at 13:29; Start 02/25/18 at 11:30 Lisinopril (Prinivil) 10 mg DAILY PO ; Start 02/26/18 at 09:00; Stop 02/26/18 at 09:00; Status DC Lisinopril (Prinivil) 5 mg 1X ONCE PO Last administered on 02/25/18 16:29; Start 02/25/18 at 16:45; Stop 02/25/18 at 16:46; Status DC Hydralazine HCl (Apresoline) 25 mg BID PO Last administered on 02/26/18at 08:45 ; Start 02/25/18 at 21:00 Atorvastatin Calcium (Lipitor) 40 mg QHS PO Last administered on 02/25/18at 20: 48; Start 02/25/18 at 21:00 Ceftriaxone Sodium 1 gm/ Sodium Chloride 50 ml @ 100 mls/hr Q24H IV Last administered on 02/25/18at 17:00; Start 02/25/18 at 17:00 Azithromycin (Zithromax) 500 mg 1X ONCE PO Last administered on 02/25/18 16: 45; Start 02/25/18 at 16:45; Stop 02/25/18 at 16:46; Status DC Levothyroxine Sodium (Synthroid) 25 mcg DAILY06 PO Last administered on 05:31; Start 02/26/18 at 06:00 Lisinopril (Prinivil) 40 mg DAILY PO Last administered on 02/26/18at 08:43; Start 02/26/18 at 09:00 Lorazepam (Ativan) 0.5 mg BID PRN PO ANXIETY / AGITATION; Start 02/25/18 at 17 :15 Metoprolol Succinate (Toprol Xl) 100 mg DAILY PO Last administered on at 08:45; Start 02/26/18 at 09:00 Pantoprazole Sodium (Protonix) 40 mg DAILYAC PO Last administered on at 08:45; Start 02/26/18 at 07:30 Potassium Chloride (Klor-Con) 10 meq DAILYWBKFT PO ; Start 02/26/18 at 08:00; Stop 02/26/18 at 08:00; Status DC Sertraline HCl (Zoloft) 25 mg DAILY PO Last administered on 02/26/18at 08:44; Start 02/26/18 at 09:00 Zolpidem Tartrate (Ambien) 10 mg QHS PO ; Start 02/25/18 at 21:00; Stop at 21:00; Status DC Lactobacillus Rhamnosus (Culturelle) 1 cap BID PO Last administered on at 08:44; Start 02/25/18 at 21:00 Zolpidem Tartrate (Ambien) 5 mg QHS PO ; Start 02/25/18 at 21:00 Zolpidem Tartrate (Ambien) 5 mg PRN QHS PRN PO INSOMNIA; Start 02/25/18 at 17: 30 Potassium Chloride (Klor-Con) 40 meq DAILY PO Last administered on 02/26/18at 08:42; Start 02/26/18 at 09:00 Active Scripts Active Reported Levothyroxine Sodium 25 Mcg Tablet 25 Mcg PO DAILY Lisinopril 40 Mg Tablet 40 Mg PO DAILY Clonidine Hcl 0.1 Mg Tablet 0.1 Mg PO DAILY Metoprolol Succinate ( Xl ) (Metoprolol Succinate) 100 Mg Tab.er.24h 100 Mg PO DAILY Zolpidem Tartrate 10 Mg Tablet 10 Mg PO DAILY Lorazepam 0.5 Mg Tablet 0.5 Mg PO PRN PRN Omeprazole 40 Mg Capsule.dr 40 Mg PO DAILY Furosemide 20 Mg Tablet 20 Mg PO DAILY Potassium Chloride 10 Meq Tablet.er 10 Meq PO DAILY07 Sertraline Hcl 25 Mg Tablet 25 Mg PO DAILY Vitals/I & O Vital Sign - Last 24 Hours 02/25/18 02/25/18 02/25/18 02/25/18 09:30 10:00 10:28 10:30 Pulse 59 60 58 Resp 21 B/P (MAP) 168/73 (104) 165/85 (111) 171/65 (100) Pulse Ox 98 97 100 97 O2 Delivery BiPAP/CPAP 02/25/18 02/25/18 02/25/18 02/25/18 10:51 11:00 11:30 12:08 Pulse 65 56 54 Resp 25 24 B/P (MAP) 165/63 180/68 (105) 145/58 (87) Pulse Ox 98 96 O2 Delivery Bi-pap 02/25/18 02/25/18 02/25/18 02/25/18 12:11 12:30 13:00 13:29 Temp 98.0 Pulse 58 58 58 Resp 21 24 20 25 B/P (MAP) 165/64 (97) 175/65 (101) 159/80 (106) Pulse Ox 98 98 98 99 O2 Delivery BiPAP/CPAP BiPAP/CPAP 02/25/18 02/25/18 02/25/18 02/25/18 13:30 13:54 14:00 15:01 Temp 98.5 Pulse 58 66 58 Resp 21 24 23 B/P (MAP) 144/62 (89) 166/76 (106) 131/53 (79) Pulse Ox 98 98 98 98 O2 Delivery BiPAP/CPAP BiPAP/CPAP Nasal Cannula O2 Flow Rate 2.0 02/25/18 02/25/18 02/25/18 02/25/18 16:08 16:10 16:29 16:30 Pulse 57 54 54 Resp 22 22 B/P (MAP) 133/52 (79) 158/88 158/88 (111) Pulse Ox 98 97 O2 Delivery Nasal Cannula Nasal Cannula O2 Flow Rate 2.0 2.0 02/25/18 02/25/18 02/25/18 02/25/18 16:54 17:00 18:00 19:00 Pulse 56 58 60 Resp 24 22 24 B/P (MAP) 151/72 (98) 157/76 (103) 121/45 (70) Pulse Ox 98 98 94 O2 Delivery Nasal Cannula Nasal Cannula O2 Flow Rate 2.0 2.0 02/25/18 02/25/18 02/25/18 02/25/18 19:15 19:30 19:45 20:00 Pulse 58 56 62 Resp 24 24 B/P (MAP) 138/56 (83) 106/59 (75) 171/66 (101) Pulse Ox 92 94 O2 Delivery Nasal Cannula Nasal Cannula Nasal Cannula Nasal Cannula O2 Flow Rate 2.0 2.0 2.0 2.0 02/25/18 02/25/18 02/25/18 02/25/18 20:00 20:15 20:48 20:55 Temp 98.1 Pulse 54 60 57 Resp 21 B/P (MAP) 157/52 (87) 161/62 (95) 171/71 Pulse Ox 99 99 99 O2 Delivery Nasal Cannula Nasal Cannula Nasal Cannula O2 Flow Rate 2.0 2.0 2.0 02/25/18 02/25/18 02/25/18 02/25/18 21:00 21:30 22:00 22:30 Pulse 54 56 56 58 Resp 20 22 28 23 B/P (MAP) 182/79 (113) 122/47 (72) 112/44 (66) 117/56 (76) Pulse Ox 100 97 98 97 O2 Delivery Nasal Cannula Nasal Cannula Nasal Cannula Nasal Cannula O2 Flow Rate 2.0 2.0 2.0 2.0 02/25/18 02/25/18 02/26/18 02/26/18 23:00 23:30 00:00 00:00 Pulse 56 56 54 Resp 23 25 24 B/P (MAP) 122/48 (72) 104/40 (61) 124/49 (74) Pulse Ox 96 97 97 O2 Delivery Nasal Cannula Nasal Cannula Nasal Cannula Nasal Cannula O2 Flow Rate 2.0 2.0 2.0 2.0 02/26/18 02/26/18 02/26/18 02/26/18 00:01 00:30 01:00 01:30 Temp 98.4 Pulse 54 54 58 Resp 22 22 20 B/P (MAP) 158/58 (91) 146/60 (88) 140/50 (80) Pulse Ox 98 98 99 O2 Delivery Nasal Cannula Nasal Cannula Nasal Cannula O2 Flow Rate 2.0 2.0 2.0 02/26/18 02/26/18 02/26/18 02/26/18 02:00 02:30 03:00 03:30 Pulse 54 54 56 54 Resp 21 21 19 16 B/P (MAP) 138/55 (82) 161/63 (95) 149/64 (92) 123/52 (75) Pulse Ox 98 98 98 98 O2 Delivery Nasal Cannula Nasal Cannula Nasal Cannula Nasal Cannula O2 Flow Rate 2.0 2.0 2.0 2.0 02/26/18 02/26/18 02/26/18 02/26/18 04:00 04:00 04:30 05:00 Temp 98.6 Pulse 58 54 56 Resp 20 22 22 B/P (MAP) 169/69 (102) 155/61 (92) 162/68 (99) Pulse Ox 97 97 98 O2 Delivery Nasal Cannula Nasal Cannula Nasal Cannula Nasal Cannula O2 Flow Rate 2.0 2.0 2.0 2.0 02/26/18 02/26/18 02/26/18 02/26/18 05:28 05:30 05:53 06:00 Pulse 63 56 62 Resp 21 B/P (MAP) 162/68 149/58 (88) 116/48 (70) Pulse Ox 98 97 98 O2 Delivery Nasal Cannula Nasal Cannula Nasal Cannula O2 Flow Rate 2.0 1.0 2.0 02/26/18 02/26/18 02/26/18 02/26/18 07:53 08:02 08:43 08:45 Temp 98.6 Pulse 62 77 77 B/P (MAP) 116/48 (70) 135/55 135/55 Pulse Ox 98 O2 Delivery Nasal Cannula Nasal Cannula O2 Flow Rate 2.0 2.0 02/26/18 08:45 Pulse 77 B/P (MAP) 135/55 Intake and Output 02/25/18 02/25/18 02/26/18 15:00 23:00 07:00 Intake Total 240 ml 326.84 ml 96 ml Output Total 1875 ml 370 ml 160 ml Balance -1635 ml -43.16 ml -64 ml THELMA HIGGINBOTHAM APRN Feb 26, 2018 09:05
[2018-02-26] MEDS ORDERED: MAGNESIUM SULFATE 2GM 50 ML IV ONE ×2 (09:30→10:30)
--- NOTE | 2018-02-26 09:32 | RAD ---
Indication:CHF, PT GETTING BREATHING TREATMENT AT TIME OF X-RAY TECHNIQUE:Portable AP chest X-ray COMPARISON:02/25/2018 FINDINGS: Heart is normal in size. Lungs are hyperinflated but without focal consolidation. No pneumothorax or pleural effusion. Large sliding hiatal hernia. Aortic knob calcifications suggesting systemic arterial hypertension. There is mild dextroscoliosis of the midthoracic spine. Otherwise, visualized bony thorax is within normal limits. IMPRESSION: 1. Findings of COPD. 2. Large sliding hiatal hernia. Electronically signed by: [place] DO (02/26/2018 9:28 AM) [facility]
[2018-02-26] MEDS ORDERED: POTASSIUM CHLORIDE 20 MEQ TABLET.ER. PO ONE (10:15)
[2018-02-26 12:23] LABS: CALCIUM 8.7 mg/dL (8.5-10.1); CREATININE 0.9 mg/dL (0.6-1.0); GFR 59.5; POTASSIUM 4.6 mmol/L (3.5-5.1)
[2018-02-26] MEDS: POTASSIUM CHLORIDE 20 MEQ TABLET.ER. PO SCH ×2 (13:09→20:15)
[2018-02-26] MEDS: MAGNESIUM OXIDE 400 MG TABLET PO SCH ×2 (14:00→20:16)
[2018-02-26] MEDS ORDERED: IPRATRPIUM/ALBUTEROL 0.5/2.5MG 3 ML NEBU. ONE ×2 (15:07→20:17)
--- NOTE | 2018-02-26 18:18 | PN ---
DATE: 02/26/2018 SUBJECTIVE: The patient is resting slightly propped up in bed, no apparent distress. She is awake, alert, stated that she is feeling much better, although apparently she continued to have cough with just scanty whitish sputum. PHYSICAL EXAMINATION: GENERAL: When I examined her, she looked pale, but no jaundice, cyanosis, or thyromegaly. No jugular venous distension. No limb edema. VITAL SIGNS: Her heart rate was 70, blood pressure was 98/46, temperature was 98.6, respiratory rate was 20, and oxygen saturation was 96% on 2 liters of oxygen. HEAD, EYES, EARS, NOSE AND THROAT: Showed normocephalic, atraumatic. NECK: Supple. HEART: Showed normal first and second heart sounds. No gallop, rub or murmur. CHEST: Clear to auscultation. No crepitation or rhonchi. ABDOMEN: Distended, soft, nontender. NEUROLOGIC: She was awake, alert, responding, very hard of hearing, but otherwise all the cranial nerves intact. She moves extremities without difficulty. Her intake over the last 24 hours was ____ output was 2400. LABORATORY DATA: As of this morning, her serum sodium is low at 131, potassium 3.1, chloride 91, bicarbonate 35, anion gap of 5, BUN 15, creatinine 0.7, estimated GFR was 79 mL per minute. Her glucose was 105, calcium was 8.4, magnesium was 1.5. Total bilirubin, AST, ALT, alkaline phosphatase were normal. Total protein was 6.6, albumin 2.8. She has 3 sets of cardiac enzyme showed that her Troponin has been rising from 0.086 to 0.52. ASSESSMENT AND PLAN: 1. Mepzu-ea-ccabadh systolic congestive heart failure. 2. Acute hypoxic hypercapnic respiratory failure. 3. The patient has also accelerated hypertension. 4. Possible right lower lobe pneumonia. 5. Perhaps non-ST segment elevation myocardial infarction. The patient is definitely much better. Her blood pressure is much better controlled. Her heart failure is much well compensated. The patient has multiple other medical problems including hyponatremia and hypokalemia, likely due to over diuresis and hypomagnesemia. Also, we will supplement her potassium and magnesium and once her electrolytes were replenished and the patient can be hopefully discharged home tomorrow and she probably needs an outpatient stress test. MYKE SCHREIBER MD DR: Odilon JOB#: [id number] / [id number]
[2018-02-26] MEDS: ATORVASTATIN CALCIUM 20 MG TABLET PO SCH (20:15)
[2018-02-26] MEDS: ZOLPIDEM 5 MG TABLET. PO SCH (20:16)
[2018-02-27] VITALS (10 sets, daily range): BP systolic 133–185; BP diastolic 58–81
[2018-02-27] MEDS: hydrALAZINE 20 MG/ML VIAL. IV PRN ×2 (00:57→20:54)
[2018-02-27] MEDS: LEVOTHYROXINE 25 MCG TABLET. PO SCH (04:40)
[2018-02-27] MEDS: IPRATRPIUM/ALBUTEROL 0.5/2.5MG 3 ML NEBU. NEB SCH ×4 (05:31→20:45)
[2018-02-27] MEDS: LISINOPRIL 20 MG TABLET PO SCH (06:44)
[2018-02-27] MEDS: METOPROLOL SUCC 24HR ER 50 MG TAB.ER.24H. PO SCH (06:45)
[2018-02-27 07:07] LABS: BASO % 1 % (0-3); EOS % 1 % (0-3); HEMATOCRIT 42.2 % (36.0-47.0); LYMPH # 1.3 x10^3/uL (1.0-4.8); LYMPH % 17 % (24-48); MEAN CORPUSCULAR HEMOGLOBIN 29 pg (25-35); MEAN CORPUSCULAR HGB CONC 33 g/dL (31-37); MEAN CORPUSCULAR VOLUME 89 fL (79-100); MONO # 0.7 x10^3/uL (0.0-1.1); MONO % 9 % (0-9); NEUT # 5.7 x10^3uL (1.8-7.7); NEUT % 73 % (31-73); PLATELET COUNT 243 x10^3/uL (140-400); RED BLOOD COUNT 4.76 x10^6/uL (3.50-5.40); WHITE BLOOD COUNT 7.8 x10^3/uL (4.0-11.0)
[2018-02-27 07:20] LABS: ALBUMIN/GLOBULIN RATIO 0.8 (1.0-1.7); CALCIUM 8.9 mg/dL (8.5-10.1); CREATININE 0.7 mg/dL (0.6-1.0); GFR 79.5; POTASSIUM 4.4 mmol/L (3.5-5.1); TOTAL BILIRUBIN 0.5 mg/dL (0.2-1.0); TOTAL PROTEIN 6.8 g/dL (6.4-8.2)
[2018-02-27] MEDS ORDERED: FUROSEMIDE 20 MG/2 ML VIAL IVP SCH (09:00)
[2018-02-27] MEDS: FUROSEMIDE 20 MG TABLET PO SCH (09:38)
[2018-02-27] MEDS: MAGNESIUM OXIDE 400 MG TABLET PO SCH ×3 (09:38→20:51)
[2018-02-27] MEDS: LACTOBACILLUS RHAMNOSUS GG 1 CAPSULE. PO SCH ×2 (09:38→20:51)
[2018-02-27] MEDS: ASPIRIN ENTERIC COATED 325 MG TABLET.DR. PO SCH (09:38)
[2018-02-27] MEDS: POTASSIUM CHLORIDE 20 MEQ TABLET.ER. PO SCH ×3 (09:39→20:53)
[2018-02-27] MEDS: SERTRALINE 25 MG TABLET. PO SCH (09:40)
[2018-02-27] MEDS: PANTOPRAZOLE 40 MG TABLET. PO SCH (09:41)
[2018-02-27] MEDS: ENOXAPARIN 40 MG/0.4 ML SYRINGE. SQ SCH (09:43)
--- NOTE | 2018-02-27 11:07 | PN ---
DATE: 02/27/2018 SUBJECTIVE: The patient is sitting, slightly propped up in bed, in no apparent respiratory distress. She is awake, alert, very hard of hearing. On questioning her, denied any complaint. Nursing staff did not voice any concerns, she had an uneventful night. PHYSICAL EXAMINATION: GENERAL: When I examined her, she looked pale, somewhat cachectic, but no jaundice, cyanosis, or thyromegaly. No jugular venous distension. No lower limb edema. VITAL SIGNS: Her heart rate was 57, blood pressure was 185/63, temperature was 98.4, respiratory rate was 16 and oxygen saturation was 94% on 2 liters of oxygen. HEAD, EYES, EARS, NOSE AND THROAT: Showed normocephalic, atraumatic. NECK: Supple. HEART: Showed normal first and second heart sounds with no gallop, rub or murmur. CHEST: Shows central trachea, equally reduced expansion, reduced air entry, vesicular sounds, very few crepitations bilaterally, more on the left. NEUROLOGIC: She is very hard of hearing, but otherwise all other cranial nerves are intact. She moves extremities without difficulty. She ambulates with a walker. Her intake over the last 24 hours was 662, output was 2400. LABORATORY DATA: As of this morning; her serum sodium was 139, potassium 4.4, chloride 99, bicarbonate 32, anion gap of 8, BUN 16, creatinine 0.7, estimated GFR was 79 mL per minute. Her glucose was 127, calcium was 8.9. Total bilirubin, AST, ALT, alkaline phosphatase were normal. Her total protein was 6.8, albumin 3. White cell count was 7800, hemoglobin 14, hematocrit 42, MCV 89 and platelet count of 243,000. So far, her urine culture is negative and her blood cultures are so far negative. ASSESSMENT: 1. Acute on chronic systolic congestive heart failure. 2. Resolving acute hypoxic hypercapnic respiratory failure, improving. 3. The patient continued to have suboptimally controlled hypertension. 4. Right lower lobe pneumonia. 5. Non-ST segment elevation myocardial infarction. 6. Hyponatremia, hypokalemia and hypomagnesemia, all improved. PLAN: To switch her to oral Lasix. The patient can be transferred to the floor, continue with physical and occupational therapy. She obviously will require an outpatient stress test. MYKE SCHREIBER MD DR: Odilon JOB#: [id number] / [id number]
[2018-02-27] MEDS: AZITHROMYCIN 250 MG TABLET. PO SCH (11:39)
[2018-02-27] MEDS: ATORVASTATIN CALCIUM 20 MG TABLET PO SCH (20:51)
[2018-02-27] MEDS: ZOLPIDEM 5 MG TABLET. PO SCH (20:51)
[2018-02-28] MEDS: IPRATRPIUM/ALBUTEROL 0.5/2.5MG 3 ML NEBU. NEB SCH ×4 (05:25→21:00)
[2018-02-28] MEDS: LEVOTHYROXINE 25 MCG TABLET. PO SCH (05:30)
[2018-02-28] MEDS: hydrALAZINE 20 MG/ML VIAL. IV PRN ×2 (05:41→15:39)
[2018-02-28 06:29] VITALS: BP 205/46
[2018-02-28 06:47] VITALS: BP 164/70
[2018-02-28] MEDS: METOPROLOL SUCC 24HR ER 50 MG TAB.ER.24H. PO SCH (08:08)
[2018-02-28] MEDS: ENOXAPARIN 40 MG/0.4 ML SYRINGE. SQ SCH (08:08)
[2018-02-28] MEDS: POTASSIUM CHLORIDE 20 MEQ TABLET.ER. PO SCH ×3 (08:09→20:37)
[2018-02-28] MEDS: LISINOPRIL 20 MG TABLET PO SCH (08:09)
[2018-02-28] MEDS: FUROSEMIDE 20 MG TABLET PO SCH (08:09)
[2018-02-28] MEDS: LACTOBACILLUS RHAMNOSUS GG 1 CAPSULE. PO SCH ×2 (08:10→20:37)
[2018-02-28] MEDS: MAGNESIUM OXIDE 400 MG TABLET PO SCH ×3 (08:10→20:36)
[2018-02-28] MEDS: PANTOPRAZOLE 40 MG TABLET. PO SCH (08:10)
[2018-02-28] MEDS: ASPIRIN ENTERIC COATED 325 MG TABLET.DR. PO SCH (08:10)
[2018-02-28] MEDS: AZITHROMYCIN 250 MG TABLET. PO SCH (08:10)
[2018-02-28] MEDS: SERTRALINE 25 MG TABLET. PO SCH (08:10)
[2018-02-28 11:34] VITALS: BP 174/65
--- NOTE | 2018-02-28 12:28 | PN ---
DATE: 02/28/2018 SUBJECTIVE: The patient is resting, slightly propped up in bed, in no apparent distress. On questioning her, she said that she did well overnight. She has had a shower today and she did feel somewhat short of breath. In fact, she has not required any oxygen last night and this morning, she is now on 1 liter of oxygen by nasal cannula. OBJECTIVE: GENERAL: When I examined her, she looked pale, somewhat cachectic, but no jaundice, cyanosis, or thyromegaly. No jugular venous distension. No limb edema. VITAL SIGNS: Her heart rate was 58, blood pressure was 164/70, temperature was 97.6, respiratory rate was 16, and oxygen saturation was 97% on 1 liters of oxygen by nasal cannula. HEAD, EYES, EARS, NOSE AND THROAT: Showed normocephalic, atraumatic. NECK: Supple. HEART: Showed normal first and second heart sounds with no gallop, rub or murmur. CHEST: Clear to auscultation. No crepitation or rhonchi. ABDOMEN: Distended, soft, nontender. No guarding or rigidity. No organomegaly. All hernial orifice intact. Bowel sounds normal. NEUROLOGIC: She is hard of hearing, but otherwise all cranial nerves intact. She moves extremities without difficulty. She ambulates with a walker. Her intake was 1340, output was 825. LABORATORY DATA: As of yesterday showed a serum sodium 139, potassium 4.4, chloride was 99, bicarbonate 32, anion gap of 8, BUN 16, creatinine 0.7, estimated GFR was 79 mL per minute. Her glucose 127, calcium was 8.9. Total bilirubin, AST, ALT, alkaline phosphatase were normal. Total protein was 6.8, albumin 3. Her white cell count is down to 7800, hemoglobin 14, hematocrit 42, MCV 89 and platelet count 243,000. ASSESSMENT: 1. Acute on chronic systolic congestive heart failure, improving. 2. Resolving acute hypoxic hypercapnic respiratory failure. 3. Hypertension. Continues to be suboptimally controlled. 4. Right lower lobe pneumonia. 5. ST segment elevation myocardial infarction. 6. Hyponatremia, hypokalemia, and hypomagnesemia, all resolved. PLAN: I will repeat her chest x-ray. I would also start her on scheduled hydralazine, will start with 10 mg and increase the dose to achieve a better blood pressure control. She remains stable tomorrow. She can be discharged home with an arrangement for outpatient stress test. MYKE SCHREIBER MD DR: TATYANA/aditi JOB#: [id number] / [id number]
--- NOTE | 2018-02-28 12:32 | RAD ---
Chest radiograph 02/28/2018 12:09 PM INDICATION: Worsening cough and shortness of breath COMPARISON: February 26, 2018 TECHNIQUE: Frontal and lateral views of the chest are provided. FINDINGS: The cardiomediastinal silhouette is within normal limits. Pulmonary emphysematous changes are suspected. There is hyperexpansion of the lungs. There is improved aeration of the left lung base. There is a small to moderate hiatal hernia which appear similar. No pulmonary vascular congestion or pneumothorax. Apical pleural parenchymal scarring is identified. IMPRESSION: COPD changes with improved aeration of the left lung. Electronically signed by: Jeanette Haskins MD (02/28/2018 12:28 PM) [facility]
[2018-02-28] MEDS: hydrALAZINE 10 MG TABLET PO SCH ×2 (13:50→20:38)
[2018-02-28 15:45] VITALS: BP 151/62
[2018-02-28 19:34] VITALS: BP 152/54
[2018-02-28] MEDS: ZOLPIDEM 5 MG TABLET. PO SCH (20:36)
[2018-02-28] MEDS: ATORVASTATIN CALCIUM 20 MG TABLET PO SCH (20:37)
[2018-02-28 22:10] VITALS: BP 132/56
[2018-03-01 05:23] VITALS: BP 138/65
[2018-03-01] MEDS: IPRATRPIUM/ALBUTEROL 0.5/2.5MG 3 ML NEBU. NEB SCH ×2 (05:49→10:27)
[2018-03-01] MEDS: LEVOTHYROXINE 25 MCG TABLET. PO SCH (06:25)
[2018-03-01 06:40] LABS: BASO % 1 % (0-3); EOS % 1 % (0-3); HEMATOCRIT 42.4 % (36.0-47.0); HEMOGLOBIN 13.9 g/dL (12.0-15.5); LYMPH # 1.5 x10^3/uL (1.0-4.8); LYMPH % 23 % (24-48); MEAN CORPUSCULAR HEMOGLOBIN 29 pg (25-35); MEAN CORPUSCULAR HGB CONC 33 g/dL (31-37); MEAN CORPUSCULAR VOLUME 89 fL (79-100); MONO # 0.6 x10^3/uL (0.0-1.1); MONO % 10 % (0-9); NEUT # 4.1 x10^3uL (1.8-7.7); NEUT % 66 % (31-73); PLATELET COUNT 297 x10^3/uL (140-400); RED BLOOD COUNT 4.77 x10^6/uL (3.50-5.40); RED CELL DISTRIBUTION WIDTH 13.9 % (11.5-14.5); WHITE BLOOD COUNT 6.3 x10^3/uL (4.0-11.0)
[2018-03-01 06:42] LABS: CREATININE 0.7 mg/dL (0.6-1.0); GFR 79.5
[2018-03-01] MEDS: PANTOPRAZOLE 40 MG TABLET. PO SCH (08:56)
[2018-03-01] MEDS: LACTOBACILLUS RHAMNOSUS GG 1 CAPSULE. PO SCH (08:57)
[2018-03-01] MEDS: AZITHROMYCIN 250 MG TABLET. PO SCH (08:57)
[2018-03-01] MEDS: ASPIRIN ENTERIC COATED 325 MG TABLET.DR. PO SCH (08:57)
[2018-03-01] MEDS: MAGNESIUM OXIDE 400 MG TABLET PO SCH (08:58)
[2018-03-01] MEDS: hydrALAZINE 10 MG TABLET PO SCH (08:58)
[2018-03-01] MEDS: SERTRALINE 25 MG TABLET. PO SCH (08:59)
[2018-03-01] MEDS: LISINOPRIL 20 MG TABLET PO SCH (08:59)
[2018-03-01] MEDS: FUROSEMIDE 20 MG TABLET PO SCH (09:00)
[2018-03-01] MEDS: ENOXAPARIN 40 MG/0.4 ML SYRINGE. SQ SCH (09:00)
[2018-03-01] MEDS: METOPROLOL SUCC 24HR ER 50 MG TAB.ER.24H. PO SCH (09:00)
--- NOTE | 2018-03-01 09:56 | PDOC ---
PROGRESS NOTES Diagnosis Problem Problems Medical Problems: (1) Acute on chronic congestive heart failure Status: Acute (2) Acute respiratory failure with hypoxia and hypercapnia Status: Acute Assessment Problems Medical Problems: (1) Acute on chronic congestive heart failure Status: Acute (2) Acute respiratory failure with hypoxia and hypercapnia Status: Acute 1. Nstemi - demand related. Remains Angina free. No acute EKG changes. Plan for outpatient MPI in a couple weeks when respiratory status back to baseline. 2. acute respiratory failure, multifactorial - on nasal cannula oxygen and maintaining oxygen saturation.. 3. acute on chronic, systolic and diastolic heart failure - EF 35-40% with global hypokinesis. Remains compensated clinically on oral lasix. Decrease potassium supplement. 4. COPD / PNA - continued mgmt per PCP 5. accelerated hypertension - BP controlled on current meds. 6. Bradycardia - resolved. She is currently on home metoprolol dose with mild bradycardia. No significant symptoms related to rate. Consider outpatient MCT. Subjective up with PT this am. wants to go home. no chest pain, breathing better and on only 0.5 l of oxygen by nasal cannula. no lightheadedness or palpitations. Objective Vital Signs Date Time Temp Pulse Resp B/P (MAP) Pulse Ox O2 Delivery O2 Flow Rate FiO2 03/01/18 09:00 56 138/65 03/01/18 05:50 95 Nasal Cannula 0.5 03/01/18 05:23 97.8 16 Intake and Output 03/01/18 07:00 Intake Total 800 ml Balance 800 ml Intake Oral 800 ml # Voids 5 Abdomen: Normal bowel sounds, Soft, No tenderness Heart: Normal S1, Normal S2, Other (no gallops, clicks or rubs) General: Alert, Oriented X3, Cooperative, No acute distress HEENT: Atraumatic, EOMI, Mucous membr. moist/pink Lungs: Other (decreased, no crackles, wheezes or ronchi) Neuro: Normal speech, Strength at 5/5 X4 ext Psych/Mental Status: Mental status NL, Mood NL Review of Relevant I have reviewed the following items ayanna (where applicable) has been applied. Labs Laboratory Tests Test 03/01/18 06:05 White Blood Count 6.3 x10^3/uL (4.0-11.0) Red Blood Count 4.77 x10^6/uL (3.50-5.40) Hemoglobin 13.9 g/dL (12.0-15.5) Hematocrit 42.4 % (36.0-47.0) Mean Corpuscular Volume 89 fL (79-100) Mean Corpuscular Hemoglobin 29 pg (25-35) Mean Corpuscular Hemoglobin Concent 33 g/dL (31-37) Red Cell Distribution Width 13.9 % (11.5-14.5) Platelet Count 297 x10^3/uL (140-400) Neutrophils (%) (Auto) 66 % (31-73) Lymphocytes (%) (Auto) 23 % (24-48) Monocytes (%) (Auto) 10 % (0-9) Eosinophils (%) (Auto) 1 % (0-3) Basophils (%) (Auto) 1 % (0-3) Neutrophils # (Auto) 4.1 x10^3uL (1.8-7.7) Lymphocytes # (Auto) 1.5 x10^3/uL (1.0-4.8) Monocytes # (Auto) 0.6 x10^3/uL (0.0-1.1) Eosinophils # (Auto) 0.0 x10^3/uL (0.0-0.7) Basophils # (Auto) 0.0 x10^3/uL (0.0-0.2) Sodium Level 138 mmol/L (136-145) Potassium Level 5.0 mmol/L (3.5-5.1) Chloride Level 101 mmol/L (98-107) Carbon Dioxide Level 30 mmol/L (21-32) Anion Gap 7 (6-14) Blood Urea Nitrogen 18 mg/dL (7-20) Creatinine 0.7 mg/dL (0.6-1.0) Estimated GFR (Cockcroft-Gault) 79.5 Glucose Level 112 mg/dL (70-99) Calcium Level 9.0 mg/dL (8.5-10.1) Microbiology 02/25/18 Blood Culture - Preliminary, Resulted NO GROWTH AFTER 3 DAYS... 02/25/18 Urine Culture - Final, Complete 02/25/18 Urine Culture Result 1 (SIGIFREDO) - Final, Complete Medications Current Medications Sodium Chloride (Normal Saline Flush) 10 ml QSHIFT PRN IV AFTER MEDS AND BLOOD DRAWS; Start 02/25/18 at 04:00 Nitroglycerin/ Dextrose 250 ml @ 0 mls/hr 1X ONCE IV Last administered on at 04:17; Start 02/25/18 at 04:15; Stop 02/25/18 at 04:16; Status DC Albuterol Sulfate (Ventolin) 2.5 mg 1X ONCE NEB Last administered on at 04:30; Start 02/25/18 at 04:15; Stop 02/25/18 at 04:16; Status DC Albuterol Sulfate (Ventolin) 2.5 mg STK-MED ONCE .ROUTE ; Start 02/25/18 at 03: 54; Stop 02/25/18 at 03:55; Status DC Furosemide (Lasix) 80 mg 1X ONCE IVP Last administered on 02/25/18at 04:10; Start 02/25/18 at 04:00; Stop 02/25/18 at 04:14; Status DC Ondansetron HCl (Zofran) 4 mg PRN Q4HRS PRN IV NAUSEA/VOMITING; Start at 05:15; Stop 02/26/18 at 05:14; Status DC Sodium Chloride 1,000 ml @ 0 mls/hr Q0M IV ; Start 02/25/18 at 05:15; Stop at 05:14; Status DC Albuterol/ Ipratropium (Duoneb) 3 ml RTQID NEB Last administered on 02/26/18at 05:52; Start 02/25/18 at 08:00; Stop 02/26/18 at 08:00; Status DC Enoxaparin Sodium (Lovenox 40mg Syringe) 40 mg Q24H SQ Last administered on at 09:00; Start 02/25/18 at 09:00 Aspirin (Aspirin Enteric Coated) 325 mg DAILYWBKFT PO Last administered on at 08:57; Start 02/26/18 at 08:00 Aspirin (Children'S Aspirin) 324 mg 1X ONCE PO Last administered on at 10:50; Start 02/25/18 at 09:30; Stop 02/25/18 at 09:35; Status DC Lisinopril (Prinivil) 5 mg DAILY PO Last administered on 02/25/18at 10:51; Start 02/25/18 at 09:30; Stop 02/25/18 at 16:04; Status DC Furosemide (Lasix) 40 mg BID92 IVP Last administered on 02/26/18at 08:46; Start 02/25/18 at 09:30; Stop 02/26/18 at 10:06; Status DC Potassium Chloride (Klor-Con) 20 meq DAILYWBKFT PO Last administered on at 10:53; Start 02/25/18 at 09:30; Stop 02/26/18 at 07:33; Status DC Hydralazine HCl (Apresoline) 10 mg PRN Q4HRS PRN IV ELEVATED BP, SEE COMMENTS Last administered on 02/28/18at 15:39; Start 02/25/18 at 09:30 Ketorolac Tromethamine (Toradol 30mg Vial) 30 mg PRN Q6HRS PRN IV PAIN Last administered on 02/25/18at 13:32; Start 02/25/18 at 11:15; Stop 03/02/18 at 11 :14 Morphine Sulfate (Morphine 2mg Syringe) 2 mg PRN Q2HR PRN IV PAIN Last administered on 02/25/18at 13:29; Start 02/25/18 at 11:30 Lisinopril (Prinivil) 10 mg DAILY PO ; Start 02/26/18 at 09:00; Stop 02/26/18 at 09:00; Status DC Lisinopril (Prinivil) 5 mg 1X ONCE PO Last administered on 02/25/18at 16:29; Start 02/25/18 at 16:45; Stop 02/25/18 at 16:46; Status DC Hydralazine HCl (Apresoline) 25 mg BID PO Last administered on 02/26/18at 08:45 ; Start 02/25/18 at 21:00; Stop 02/26/18 at 10:06; Status DC Atorvastatin Calcium (Lipitor) 40 mg QHS PO Last administered on 02/28/18at 20: 37; Start 02/25/18 at 21:00 Ceftriaxone Sodium 1 gm/ Sodium Chloride 50 ml @ 100 mls/hr Q24H IV Last administered on 02/28/18at 17:11; Start 02/25/18 at 17:00 Azithromycin (Zithromax) 500 mg 1X ONCE PO Last administered on 02/25/18at 16: 45; Start 02/25/18 at 16:45; Stop 02/25/18 at 16:46; Status DC Levothyroxine Sodium (Synthroid) 25 mcg DAILY06 PO Last administered on at 06:25; Start 02/26/18 at 06:00 Lisinopril (Prinivil) 40 mg DAILY PO Last administered on 03/01/18at 08:59; Start 02/26/18 at 09:00 Lorazepam (Ativan) 0.5 mg BID PRN PO ANXIETY / AGITATION Last administered on 02/28/18at 08:10; Start 02/25/18 at 17:15 Metoprolol Succinate (Toprol Xl) 100 mg DAILY PO Last administered on at 09:00; Start 02/26/18 at 09:00 Pantoprazole Sodium (Protonix) 40 mg DAILYAC PO Last administered on at 08:56; Start 02/26/18 at 07:30 Potassium Chloride (Klor-Con) 10 meq DAILYWBKFT PO ; Start 02/26/18 at 08:00; Stop 02/26/18 at 08:00; Status DC Sertraline HCl (Zoloft) 25 mg DAILY PO Last administered on 03/01/18at 08:59; Start 02/26/18 at 09:00 Zolpidem Tartrate (Ambien) 10 mg QHS PO ; Start 02/25/18 at 21:00; Stop at 21:00; Status DC Lactobacillus Rhamnosus (Culturelle) 1 cap BID PO Last administered on at 08:57; Start 02/25/18 at 21:00 Zolpidem Tartrate (Ambien) 5 mg QHS PO Last administered on 02/28/18at 20:36; Start 02/25/18 at 21:00 Zolpidem Tartrate (Ambien) 5 mg PRN QHS PRN PO INSOMNIA Last administered on at 23:28; Start 02/25/18 at 17:30 Potassium Chloride (Klor-Con) 40 meq DAILY PO Last administered on 02/26/18at 08:42; Start 02/26/18 at 09:00; Stop 02/27/18 at 09:29; Status DC Magnesium Sulfate 50 ml @ 25 mls/hr 1X ONCE IV Last administered on at 09:12; Start 02/26/18 at 09:30; Stop 02/26/18 at 11:29; Status DC Furosemide (Lasix) 20 mg DAILY IVP ; Start 02/27/18 at 09:00; Stop 02/27/18 at 09:27; Status DC Potassium Chloride (Klor-Con) 40 meq 1X ONCE PO Last administered on at 10:42; Start 02/26/18 at 10:15; Stop 02/26/18 at 10:38; Status DC Potassium Chloride (Klor-Con) 20 meq TID PO Last administered on 02/28/18at 20: 37; Start 02/26/18 at 14:00; Stop 03/01/18 at 09:01; Status DC Azithromycin (Zithromax) 250 mg DAILY PO Last administered on 03/01/18at 08:57 ; Start 02/27/18 at 11:00 Magnesium Sulfate 50 ml @ 25 mls/hr 1X ONCE IV ; Start 02/26/18 at 10:30; Stop 02/26/18 at 12:29; Status DC Magnesium Oxide (Magnesium Oxide) 400 mg TID PO Last administered on at 08:58; Start 02/26/18 at 14:00 Albuterol/ Ipratropium (Duoneb) 3 ml STK-MED ONCE .ROUTE Last administered on 02/26/18at 15:10; Start 02/26/18 at 15:07; Stop 02/26/18 at 15:08; Status DC Albuterol/ Ipratropium (Duoneb) 3 ml RTQID NEB Last administered on 02/27/18at 05:31; Start 02/26/18 at 20:30; Stop 02/27/18 at 10:44; Status DC Albuterol/ Ipratropium (Duoneb) 3 ml STK-MED ONCE .ROUTE Last administered on 02/26/18at 20:20; Start 02/26/18 at 20:17; Stop 02/26/18 at 20:18; Status DC Furosemide (Lasix) 20 mg DAILY PO Last administered on 03/01/18at 09:00; Start 02/27/18 at 09:30 Albuterol/ Ipratropium (Duoneb) 3 ml RTQID NEB Last administered on 03/01/18at 05:49; Start 02/27/18 at 11:00 Hydralazine HCl (Apresoline) 10 mg TID PO Last administered on 03/01/18at 08:58 ; Start 02/28/18 at 14:00 Potassium Chloride (Klor-Con) 20 meq BID PO ; Start 03/01/18 at 21:00 Active Scripts Active Reported Levothyroxine Sodium 25 Mcg Tablet 25 Mcg PO DAILY Lisinopril 40 Mg Tablet 40 Mg PO DAILY Clonidine Hcl 0.1 Mg Tablet 0.1 Mg PO DAILY Metoprolol Succinate ( Xl ) (Metoprolol Succinate) 100 Mg Tab.er.24h 100 Mg PO DAILY Zolpidem Tartrate 10 Mg Tablet 10 Mg PO DAILY Lorazepam 0.5 Mg Tablet 0.5 Mg PO PRN PRN Omeprazole 40 Mg Capsule.dr 40 Mg PO DAILY Furosemide 20 Mg Tablet 20 Mg PO DAILY Potassium Chloride 10 Meq Tablet.er 10 Meq PO DAILY07 Sertraline Hcl 25 Mg Tablet 25 Mg PO DAILY Vitals/I & O Vital Sign - Last 24 Hours 02/28/18 02/28/18 02/28/18 02/28/18 10:57 11:34 13:50 15:39 Temp 98.8 Pulse 60 60 60 Resp 20 B/P (MAP) 174/65 (101) 174/65 174/65 Pulse Ox 97 96 O2 Delivery Nasal Cannula Nasal Cannula O2 Flow Rate 1.0 1.0 02/28/18 02/28/18 02/28/18 02/28/18 15:45 16:12 19:34 20:38 Temp 98.0 97.7 Pulse 62 82 82 Resp 20 20 B/P (MAP) 151/62 (91) 152/54 (86) 152/54 Pulse Ox 97 97 99 O2 Delivery Nasal Cannula Nasal Cannula Nasal Cannula O2 Flow Rate 1.0 1.0 1.0 02/28/18 02/28/18 03/01/18 03/01/18 21:00 22:10 05:23 05:50 Temp 98.4 97.8 Pulse 68 56 Resp 20 16 B/P (MAP) 132/56 (81) 138/65 (89) Pulse Ox 96 96 94 95 O2 Delivery Nasal Cannula Nasal Cannula Nasal Cannula Nasal Cannula O2 Flow Rate 0.5 1.0 2.0 0.5 03/01/18 03/01/18 03/01/18 08:58 08:59 09:00 Pulse 56 56 56 B/P (MAP) 138/65 138/65 138/65 Intake and Output 02/28/18 02/28/18 03/01/18 15:00 23:00 07:00 Intake Total 440 ml 360 ml Balance 440 ml 360 ml THELMA HIGGINBOTHAM [employer] Mar 01, 2018 09:56
[2018-03-01 11:26] VITALS: BP 95/52
[2018-03-01] MEDS ORDERED: POTA20TA4 PO (11:33)
[2018-03-01] MEDS ORDERED: CEFP200T PO (11:33)
[2018-03-01] MEDS ORDERED: AZIT250T PO (11:33)
--- NOTE | 2018-03-01 12:15 | DS ---
DATE OF DISCHARGE: 03/01/2018 HOSPITAL COURSE: The patient is an 83-year-old female patient, who was admitted on 02/25/2018 through the Emergency Room with marked respiratory distress. She awoke suddenly in the middle of the night with severe shortness of breath. By the time she arrived to the Emergency Room, she was found to have an oxygen saturation of only 80%. She was found of be profoundly hypertensive with a systolic pressure more than 200. She was started on CPAP and nitro paste and was admitted. The emergency medical service reports improvement in her symptoms with initial intervention. She was in such severe respiratory distress. She was unable to provide any history and was started on BiPAP machine and nitroglycerin drip as well as IV direct, will admit to the ICU. She was in fact found to be in acute hypercapnic respiratory failure, exyub-hu-hvikttf systolic congestive heart failure, accelerated hypertension and was found also to have right lower lobe pneumonia for which she was started on IV Rocephin and Zithromax and questionable non-ST segment elevation myocardial infarction. It could be secondary to demand ischemia and she did actually very well. PHYSICAL EXAMINATION: GENERAL: When I saw her this morning, she was sitting comfortably in her chair, in no apparent respiratory distress. She was pale, but not jaundiced, no stenosis, thyromegaly. No jugular venous distension. No lower limb edema. VITAL SIGNS: Her heart rate was 66, blood pressure was 95/52, temperature was 97.7, respiratory rate was 20, and oxygen saturation was 95% on 1 liter of oxygen. HEAD, EYES, EARS, NOSE AND THROAT: Showed she is normocephalic, atraumatic. NECK: Supple. HEART: Showed normal first and second heart sounds. No gallop or murmur. CHEST: Clear to auscultation. No crepitation or rhonchi. ABDOMEN: Distended, soft, tender. NEUROLOGIC: She was hard of hearing, otherwise all cranial nerves intact. She ambulates with a walker with minimal assistance. LABORATORY DATA: Her lab work this morning showed a white cell count of 6300, hemoglobin 14, hematocrit 42, MCV 89 and platelet count of 297,000. As of this morning, her serum sodium was 138, potassium 5, chloride 101, bicarbonate 30, anion gap of 7, BUN 18, creatinine 0.7, estimated GFR was 79, glucose 119 and calcium was 9. DISCHARGE MEDICATIONS: She was discharged home to continue on following medications: Azithromycin 250 mg once a day for 5 more days, cefpodoxime or Vantin 200 mg twice a day for 5 days, potassium chloride 20 mEq once a day, levothyroxine sodium 25 mcg daily, lisinopril 40 mg once a day, lorazepam 0.5 mg daily as needed for anxiety, metoprolol succinate 100 mg daily, omeprazole 40 mg daily, sertraline 25 mg once a day and Ambien 5 mg at bedtime. FINAL DISCHARGE DIAGNOSES: 1. Acute on chronic systolic congestive heart failure, resolved. 2. Acute hypoxic hypercapnic respiratory failure, resolved. 3. Hypertension, much better controlled. 4. Right lower lobe pneumonia, resolving. 5. Non-ST segment elevation myocardial infarction. 6. Hyponatremia, hypokalemia and hypomagnesemia, all resolved. The patient will be discharged home with oxygen. She should follow with the cardiology team for outpatient stress test. MYKE SCHREIBER MD DR: TATYANA/aditi JOB#: [id number] / [id number]
[2018-03-01] MEDS ORDERED: POTASSIUM CHLORIDE 20 MEQ TABLET.ER. PO SCH (21:00)
== END 2018-03-01 14:02 | disposition home health service (06) | DRG 871 ==
LOC: ER 03:45 → ICU 04:56 → 1 SOUTH 02-27 10:10
PROVIDERS: ADMIT Internal Medicine; ATTEND Internal Medicine
PROC: 5A09357 Assistance with Respiratory Ventilation, Less than 24 Consecutive Hours, Continuous Positive Airway Pressure (ICD-10-PCS; principal; 2018-02-25)
DX: A41.9 Sepsis, unspecified organism (principal); I21.4 Non-ST elevation (NSTEMI) myocardial infarction; I50.43 Acute on chronic combined systolic (congestive) and diastolic (congestive) heart failure; J96.02 Acute respiratory failure with hypercapnia; J96.01 Acute respiratory failure with hypoxia; J18.9 Pneumonia, unspecified organism; E87.1 Hypo-osmolality and hyponatremia; J44.0 Chronic obstructive pulmonary disease with (acute) lower respiratory infection; I11.0 Hypertensive heart disease with heart failure; E83.42 Hypomagnesemia; E87.6 Hypokalemia; H90.5 Unspecified sensorineural hearing loss; I08.3 Combined rheumatic disorders of mitral, aortic and tricuspid valves; I25.10 Atherosclerotic heart disease of native coronary artery without angina pectoris; I49.3 Ventricular premature depolarization; K44.9 Diaphragmatic hernia without obstruction or gangrene; T50.2X5A Adverse effect of carbonic-anhydrase inhibitors, benzothiadiazides and other diuretics, initial encounter; Z87.891 Personal history of nicotine dependence; Z82.49 Family history of ischemic heart disease and other diseases of the circulatory system; Z98.42 Cataract extraction status, left eye; Z98.41 Cataract extraction status, right eye; Z88.7 Allergy status to serum and vaccine; Z79.899 Other long term (current) drug therapy; Z90.49 Acquired absence of other specified parts of digestive tract
CPT/HCPCS: 36415; 36600; 71045; 71046; 80048; 80053; 80061; 81001; 82553; 82803; 83605; 83735; 83880; 84484; 85007; 85025; 87040; 87086; 87641; 93005; 93306; 94618; 94640; 94660; 96365; 96375; J0360; J0456; J0696; J1650; J1885; J1940; J2270; J3475; J3490; J7613; J7620; 97110; 97530; 99291-25

== ENCOUNTER → 2018-06-01 | Outpatient (CLI) | payer MEDICARE ==
[~2018-06-01] MED LIST: AZIT250T PO; CEFP200T PO; CLON0.1T PO; FURO20TA3 PO; LEVO25TA4 PO; LISI40TA PO; LORA0.5T PO; METO-247 PO; OMEP40CA5 PO; POTA10TA10 PO; POTA20TA4 PO; SERT25TA4 PO; ZOLP10TA4 PO
--- NOTE | 2018-06-01 13:46 | RAD ---
Exam : Carotid Duplex with Grayscale Ultrasound and Spectral and Color Doppler Analysis 06/01/2018 1:39 PM Clinical Indications: prior carotid Doppler ultrasound 05-19-16 Comparison study: Carotid Doppler May 19, 2016. PQRS Compliance Statement - Stenosis calculations for CT, MR and conventional angiography are based upon measurement of the distal ICA diameter in accordance with the NASCET methodology. Stenosis calculations for carotid ultrasound studies are derived from validated velocity criteria which are known to correlate with the NASCET methodology. Findings: The common, internal and external carotid arteries were examined by grayscale, color and spectral Doppler ultrasound. There is significant diffuse aphthous chronic vascular disease. Significant plaquing is seen at the bilateral carotid bulbs right greater than left. Elevated velocities are seen within the proximal right internal carotid artery. High-grade visual narrowing is seen in the right proximal internal carotid artery. Widening of waveforms noted distal to this. Vertebral arteries are antegrade bilaterally. 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 Stenosis may be nearly occlusive. CTA recommended for further characterization. Consider vascular surgery consultation. 2. Less than 50 percent stenosis of the left internal carotid artery by ultrasound criterion Electronically signed by: Dante Curtis MD (06/01/2018 1:43 PM) [id number]
== END | disposition home or self-care (01) ==
LOC: US 11:05
PROVIDERS: ATTEND Family Medicine
DX: I65.23 Occlusion and stenosis of bilateral carotid arteries (principal)
CPT/HCPCS: 93880

== ENCOUNTER → 2018-06-10 | Outpatient (CLI) | payer MEDICARE ==
[~2018-06-10] MED LIST changes: +IOHEXOL 300 MG/ML 75 ML VIAL. IV ONE
--- NOTE | 2018-06-10 14:15 | RAD ---
PQRS Compliance Statement: One or more of the following individualized dose reduction techniques were utilized for this examination: 1. Automated exposure control 2. Adjustment of the mA and/or kV according to patient size 3. Use of iterative reconstruction technique CT angiography neck June 10, 2018 INDICATION: Carotid stenosis. COMPARISON: Carotid Doppler June 01, 2018 TECHNIQUE: Multiple axial CT images of the neck were obtained after the intravenous administration of 75 cc Omnipaque 300. Coronal and sagittal reformats are provided. Maximum intensity projection images of the cervical vasculature are provided. NASCET criteria was utilized for evaluation of carotid stenosis calculations. FINDINGS: No suspicious enhancement is identified involving the visualized portions of the brain parenchyma and posterior fossa. Orbits are normal in appearance with exception of bilateral lens replacement and senescent calcifications. Paranasal sinuses and mastoid air cells are well aerated. Nasopharynx, oropharynx and hypopharynx appear intact. Laryngeal structures are intact. Thyroid gland is normal in appearance. There is biapical pleural-parenchymal scarring. Upper lobe predominant mild pulmonary emphysematous changes are identified. There is a 7 x 5 mm nodule in the right upper lobe (series 4, image 16). There is moderate cervical spondylosis. Moderate calcified atheromatous plaque is identified involving the thoracic aorta. There is mild stenosis involving the origin of the left common carotid artery secondary to calcified atheromatous plaque. Origin of the right innominate artery is widely patent. Portion of the right common carotid artery is patent. Right common carotid artery is normal in course and caliber with moderate intimal thickening involving the distal common carotid artery. There is dense calcified atheromatous plaque at the carotid bifurcation. External carotid artery is widely patent. There is 84 percent stenosis involving the right proximal cervical internal carotid artery secondary to calcified and noncalcified atheromatous plaque at the carotid bifurcation. The distal left common carotid artery is normal in caliber. There is 68 percent stenosis of the proximal left cervical internal carotid artery secondary to calcified atheromatous plaque at the carotid bifurcation. Left external carotid artery is widely patent. There is mild stenosis of the origin the left vertebral artery. Right vertebral artery is dominant. Vertebral arteries are otherwise normal in course and caliber. Mild calcified atheromatous plaque is identified involving the cavernous segments of internal carotid arteries. No significant stenosis is identified. Middle cerebral arteries are normal in course and caliber. Anterior cerebral arteries are normal in course and caliber with patent A1 segments. There is a moderate right posterior communicating artery. Right vertebral artery is dominant. Right posterior inferior cerebral artery is widely patent. Superior cerebellar arteries are patent. Left posterior cerebral artery is normal in course and caliber with patent P1 segment. Right P1 segment appears hypoplastic or absent. There is moderate irregularity of the right posterior cerebral artery with focal high-grade stenosis (series 7, image 52). There is no aneurysm or vascular malformation involving the [place]. IMPRESSION: 1. There is a 84 percent stenosis of the proximal right cervical internal carotid artery secondary to calcified atheromatous plaque at the carotid bifurcation. 2. There is 68 percent stenosis involving the proximal left cervical internal carotid artery secondary to calcified atheromatous plaque at the carotid bifurcation. 3. There is focal high-grade stenosis involving the right posterior cerebral artery. Cranial atherosclerotic changes are noted. 4. There is a 7 x 5 mm solid noncalcified pulmonary nodule in the right upper lobe. A six-month follow-up CT chest may be of benefit to assess stability. Electronically signed by: Jeanette Haskins MD (06/10/2018 2:12 PM) [id number]
== END | disposition home or self-care (01) ==
LOC: CT 08:53
PROVIDERS: ATTEND Family Medicine
DX: I65.23 Occlusion and stenosis of bilateral carotid arteries (principal); M47.892 Other spondylosis, cervical region; I70.8 Atherosclerosis of other arteries; J43.9 Emphysema, unspecified; R91.1 Solitary pulmonary nodule; R91.8 Other nonspecific abnormal finding of lung field; I10 Essential (primary) hypertension
CPT/HCPCS: 70498; Q9967

== ENCOUNTER 2018-09-13 12:53 | Inpatient (IN) | payer MEDICARE ==
[~2018-09-13] VITALS: Ht 144.8 cm; Wt 42.6 kg
[~2018-09-13 12:53] MED LIST changes: -IOHEXOL 300 MG/ML 75 ML VIAL. IV ONE
[2018-09-13] MEDS ORDERED: IPRATRPIUM/ALBUTEROL 0.5/2.5MG 3 ML NEBU. NEB ONE (13:15)
[2018-09-13 13:28] LABS: BASO % 1 % (0-3); EOS # 0.1 x10^3/uL (0.0-0.7); EOS % 2 % (0-3); HEMATOCRIT 41.9 % (36.0-47.0); HEMOGLOBIN 14.1 g/dL (12.0-15.5); LYMPH # 1.1 x10^3/uL (1.0-4.8); LYMPH % 16 % (24-48); MEAN CORPUSCULAR HEMOGLOBIN 30 pg (25-35); MEAN CORPUSCULAR HGB CONC 34 g/dL (31-37); MEAN CORPUSCULAR VOLUME 88 fL (79-100); MONO # 0.9 x10^3/uL (0.0-1.1); MONO % 13 % (0-9); NEUT # 4.6 x10^3uL (1.8-7.7); NEUT % 69 % (31-73); PLATELET COUNT 280 x10^3/uL (140-400); RED BLOOD COUNT 4.75 x10^6/uL (3.50-5.40); RED CELL DISTRIBUTION WIDTH 13.1 % (11.5-14.5); WHITE BLOOD COUNT 6.7 x10^3/uL (4.0-11.0)
[2018-09-13] MEDS ORDERED: methylPREDNISolone SOD SUCC PF 125 MG/2 ML VIAL. IV ONE (13:30)
--- NOTE | 2018-09-13 13:45 | PHYS DOC ---
Past History Past Medical History: CHF, COPD, Depression, High Cholesterol, Hypertension, Hypothyroid Past Surgical History: Appendectomy Alcohol Use: None Drug Use: None Adult General Chief Complaint Chief Complaint: SHORTNESS OF BREATH HPI HPI Patient is a 83-year-old female presenting with shortness of breath slowly progressive for the last week feels better when she lies flat has had a cough with a lot of different colored yellow mucus mostly. No fever to see her primary care doctor today who was concerned about congestive heart failure and advised her to come to the emergency room for evaluation. Patient denies chest pain Review of Systems Review of Systems Constitutional: Denies fever or chills [] Eyes: Denies change in visual acuity, redness, or eye pain [] HENT: Denies nasal congestion or sore throat [] Respiratory: Denies cough or shortness of breath [] Cardiovascular: No additional information not addressed in HPI [] GI: Denies abdominal pain, nausea, vomiting, bloody stools or diarrhea [] : Denies dysuria or hematuria [] Musculoskeletal: Denies back pain or joint pain [] Integument: Denies rash or skin lesions [] Neurologic: Denies headache, focal weakness or sensory changes [] Endocrine: Denies polyuria or polydipsia [] All other systems were reviewed and found to be within normal limits, except as documented in this note. Current Medications Current Medications Current Medications Medications (Trade) Dose Ordered Sig/Freida Start Time Stop Time Status Last Admin Dose Admin Albuterol/ Ipratropium (Duoneb) 3 ml 1X ONCE 09/13/18 13:15 09/13/18 13:16 DC 09/13/18 13:39 3 ML Methylprednisolone Sodium Succinate (SOLU-Medrol 125MG VIAL) 125 mg 1X ONCE 09/13/18 13:30 09/13/18 13:31 DC 09/13/18 13:29 125 MG Allergies Allergies Allergies Coded Allergies Type Severity Reaction Last Updated Verified No Known Drug Allergies 09/13/18 No Physical Exam Physical Exam Constitutional: Well developed, cachectic HENT: Normocephalic, atraumatic, bilateral external ears normal, oropharynx moist, no oral exudates, nose normal. [] Eyes: PERRLA, EOMI, conjunctiva normal, no discharge. [] Neck: Normal range of motion, no tenderness, supple, no stridor. [] Cardiovascular:Heart rate regular rhythm, difficult exam due to respiratory findings Lungs & Thorax: Coarse breath sounds with some wheezing noted bilaterally mild to moderate tachypnea speaking short sentences Abdomen: Bowel sounds normal, soft, no tenderness, no masses, no pulsatile masses. [] Skin: Warm, dry, no erythema, no rash. [] Extremities: No tenderness, no cyanosis, no clubbing, ROM intact, 2+ edema bilaterally Neurologic: Alert and oriented X 3, normal motor function, normal sensory function, no focal deficits noted. [] Psychologic: Affect normal, judgement normal, mood normal. [] Current Patient Data Vital Signs Vital Signs Date Time Temp Pulse Resp B/P (MAP) Pulse Ox O2 Delivery O2 Flow Rate FiO2 09/13/18 13:40 98 Nasal Cannula 2.0 09/13/18 13:31 57 35 197/77 (117) 09/13/18 12:57 98.1 Lab Results Laboratory Tests Test 09/13/18 13:10 White Blood Count 6.7 x10^3/uL (4.0-11.0) Red Blood Count 4.75 x10^6/uL (3.50-5.40) Hemoglobin 14.1 g/dL (12.0-15.5) Hematocrit 41.9 % (36.0-47.0) Mean Corpuscular Volume 88 fL (79-100) Mean Corpuscular Hemoglobin 30 pg (25-35) Mean Corpuscular Hemoglobin Concent 34 g/dL (31-37) Red Cell Distribution Width 13.1 % (11.5-14.5) Platelet Count 280 x10^3/uL (140-400) Neutrophils (%) (Auto) 69 % (31-73) Lymphocytes (%) (Auto) 16 % (24-48) L Monocytes (%) (Auto) 13 % (0-9) H Eosinophils (%) (Auto) 2 % (0-3) Basophils (%) (Auto) 1 % (0-3) Neutrophils # (Auto) 4.6 x10^3uL (1.8-7.7) Lymphocytes # (Auto) 1.1 x10^3/uL (1.0-4.8) Monocytes # (Auto) 0.9 x10^3/uL (0.0-1.1) Eosinophils # (Auto) 0.1 x10^3/uL (0.0-0.7) Basophils # (Auto) 0.0 x10^3/uL (0.0-0.2) EKG EKG []Normal sinus rhythm rate of 57 no acute ischemic change noted interpreted by me time of encounter Radiology/Procedures Radiology/Procedures [] Impressions: cxr neg acute Course & Med Decision Making Course & Med Decision Making Pertinent Labs and Imaging studies reviewed. (See chart for details) []83-year-old female history of CHF on home oxygen 2 L also history of COPD patient is DNR presenting with shortness of breath does have wheezing on ex amination did have some faint crackles but chest x-ray not suggestive of congestive heart failure really no definite pneumonia was identified. Patient was given nebulizers given the mild to moderate tachypnea hospice will be consult for evaluation reeval: pt is less tachypneic after nebs. bnp better than usual more likely copd given overall picture d/w salma accepts admit i talked to the daughter, pt is dnr Tiffany Disclaimer Dragon Disclaimer This electronic medical record was generated, in whole or in part, using a voice recognition dictation system. Departure Departure: Impression: Primary Impression: COPD exacerbation Disposition: ADMITTED INPATIENT Admitting Physician: Dianne Zuniga Condition: STABLE Referrals: NENA CASTILLO DO (PCP) RUDDY SMALL MD Sep 13, 2018 13:45
--- NOTE | 2018-09-13 13:47 | RAD ---
CHEST AP ONLY Clinical Indication: Shortness of breath. Comparison: Two-view chest, February 28, 2018. CT chest without contrast January 18, 2013. Findings: Atherosclerotic thoracic aorta. Cardiac size is normal. There is moderate sized hiatal hernia. Tiny calcified granulomas left costophrenic angle. Lungs are clear. There is no pneumothorax. No pleural effusion is appreciated. No acute bone abnormality. There are several old right lateral rib fractures. IMPRESSION: 1. No acute cardiopulmonary process. 2. Moderate-sized hiatal hernia. Electronically signed by: Santino Flores MD (09/13/2018 1:44 PM) [id number]
[2018-09-13 13:53] LABS: ALBUMIN 3.6 g/dL (3.4-5.0); CALCIUM 9.9 mg/dL (8.5-10.1); CREATININE 0.6 mg/dL (0.6-1.0); POTASSIUM 4.6 mmol/L (3.5-5.1); TOTAL BILIRUBIN 0.3 mg/dL (0.2-1.0); TOTAL PROTEIN 7.3 g/dL (6.4-8.2)
[2018-09-13] MEDS ORDERED: NITROGLYCERIN OINT 1 GM PACKET. TP ONE (14:15)
[2018-09-13] MEDS ORDERED: DOXYCYCLINE HYCLATE 100 MG in IV DEXTROSE 5% 100 ML IV ONE (14:15)
[2018-09-13] MEDS ORDERED: IV DEXTROSE 5% 100 ML IV ONE (14:18)
[2018-09-13] MEDS ORDERED: DOXYCYCLINE HYCLATE 100 MG VIAL IV ONE (14:18)
[2018-09-13] MEDS ORDERED: IPRATRPIUM/ALBUTEROL 0.5/2.5MG 3 ML NEBU. NEB SCH (16:00)
[2018-09-13 16:33] VITALS: BP 156/70
[2018-09-13 17:54] LABS: BGAS PH 7.52 (7.35-7.45)
[2018-09-13] MEDS: ENOXAPARIN 30 MG/0.3 ML SYRINGE. SQ SCH (18:04)
[2018-09-13 19:55] VITALS: BP 121/55
[2018-09-13] MEDS: IPRATRPIUM/ALBUTEROL 0.5/2.5MG 3 ML NEBU. NEB SCH (20:34)
[2018-09-13] MEDS ORDERED: ZOLPIDEM 5 MG TABLET. PO SCH (21:00)
[2018-09-13] MEDS: DOXYCYCLINE HYCLATE 100 MG TABLET PO SCH (21:09)
[2018-09-13] MEDS: methylPREDNISolone SOD SUCC PF 40 MG/ML VIAL. IV SCH (21:10)
[2018-09-13] MEDS: MONTELUKAST 10 MG TABLET. PO SCH (21:10)
[2018-09-13 21:11] LABS: BILIRUBIN,URINE NEG (NEG); CLARITY,URINE HAZY; COLOR,URINE YELLOW; GLUCOSE,URINE 100 mg/dL (NEG); NITRITE,URINE NEG (NEG); UROBILINOGEN,URINE 0.2 mg/dL (0.2 mg/dL)
[2018-09-13 21:12] LABS: BACTERIA,URINE FEW /HPF (0-FEW); RBC,URINE 0 /HPF (0-2); SQUAMOUS EPITHELIAL CELL,UR FEW /LPF
--- NOTE | 2018-09-13 21:29 | HP ---
ADMIT DATE: 09/13/2018 HISTORY OF PRESENT ILLNESS: The patient is an 83-year-old female patient who came to the Emergency Room complaining of shortness of breath. It has been going on for 2 weeks now associated with cough with scanty whitish sputum. She denied any chest pain, denied any fever, chills or rigors. Denied any orthopnea or paroxysmal nocturnal dyspnea. She was seen by her primary care physician and was given antibiotic, but without any improvement and therefore, she came to the Emergency Room for further evaluation and treatment. She has had a chest x-ray, which showed the heart size is normal. There is moderate sized hiatal hernia, tiny calcified granulomas in the left costophrenic angle, lungs are clear. There is no pneumothorax, no pleural effusion is appreciated, no acute bone abnormalities. There are several old right lateral rib fractures and she was admitted with acute COPD exacerbation and was treated with IV steroids and nebulized treatment as well as antibiotic. PAST MEDICAL HISTORY: Significant for hypertension, hyperlipidemia, hypothyroidism. She apparently was admitted here February of last year for similar problem. At that time, she was diagnosed with [id number] systolic congestive heart failure, acute hypoxic hypercapnic respiratory failure, hypertension, qti-QP-[id number] elevation myocardial infarction. She at that time with hyponatremia, hypokalemia and hypomagnesemia, that all resolved. At that time, she was discharged home on home oxygen. She did have at that time an echocardiogram, which showed that her left ventricular size borderline dilated, the left ventricular systolic function is moderately decreased, ejection fraction is 35-40%. There is global hypokinesis, the left ventricle mildly increased, the septal wall with mild valvular aortic stenosis. Calculated aortic valve area is 1.3 square cm with maximum pressure gradient of 9 mm pressure. PAST SURGICAL HISTORY: Significant for right elbow fracture, status post open reduction and internal fixation; bilateral cataract extraction; tonsillectomy; appendectomy; esophageal stricture dilatation multiple times and colonoscopy. ALLERGIES: She has no known drug allergies. MEDICATIONS: She is currently on following medications: She is on metoprolol succinate 100 mg once a day, lisinopril 40 mg once a day, sertraline 25 mg once a day, lorazepam 0.5 mg, Ambien 10 mg p.o. daily, potassium chloride 10 mEq daily, omeprazole 40 mg once a day, levothyroxine sodium 25 mcg once a day. FAMILY HISTORY: Unremarkable. SOCIAL HISTORY: She is , lives alone. She has one daughter. She smoked for 15 years, quit in her 30s. She does not drink alcohol or use any recreational drugs. 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 REVIEW OF SYSTEMS: As per history of present illness. PHYSICAL EXAMINATION: GENERAL: On arrival to the Emergency Room, she was clearly tachypneic, hypoxic, pale, but no pallor, jaundice, cyanosis, or thyromegaly. No jugular venous distension. No limb edema. VITAL SIGNS: Her heart rate was 59, her blood pressure was 197/77, temperature was 98.1, respiratory rate was 38 and oxygen saturation was 89% on room air. EXAMINATION OF THE HEAD, EYES, EARS, NOSE AND THROAT: Showed normocephalic, atraumatic. NECK: Supple. HEART: Showed normal first and second heart sounds. No gallop or murmur. CHEST: Clear to auscultation. No crepitation or rhonchi. ABDOMEN: Scaphoid, soft, nontender. NEUROLOGIC: She was awake, alert, responding appropriately. She is very hard of hearing, but otherwise all cranial nerves intact. EXTREMITIES: She moves extremities without difficulty. She ambulates without assistance or assistive devices. LABORATORY DATA: Her lab work on admission showed a white cell count of 6700, hemoglobin 14, hematocrit 42, MCV 88 and platelet count of 280,000. Her serum sodium was 134, potassium 4.6, chloride 95, bicarbonate 36, anion gap of 3, BUN 13, creatinine was 0.6, estimated GFR was 95 mL per minute. Her glucose was 123, calcium was 9.9. Total bilirubin, AST, ALT, alkaline phosphatase were normal. Her beta natriuretic peptide was 1634. Total protein was 7.3, albumin was 3.6. PLAN: My plan is to continue with IV steroids and nebulized albuterol and Atrovent. Continue with oral doxycycline and probably she has acute bronchitis, and given her left lower extremity ____ arrange for venous Doppler ultrasound of her left lower extremity and perhaps also consider a CT angio of the chest to rule out possibility of pulmonary embolism DICTATION ENDS HERE MYKE SCHREIBER MD DR: TATYANA/aditi JOB#: [id number] / [id number]
[2018-09-14] MEDS: IPRATRPIUM/ALBUTEROL 0.5/2.5MG 3 ML NEBU. NEB SCH ×2 (04:57→09:58)
[2018-09-14] MEDS: LEVOTHYROXINE 25 MCG TABLET. PO SCH (05:32)
[2018-09-14 05:36] VITALS: BP 158/67
[2018-09-14] MEDS: methylPREDNISolone SOD SUCC PF 40 MG/ML VIAL. IV SCH ×2 (07:34→21:12)
[2018-09-14] MEDS: FUROSEMIDE 20 MG/2 ML VIAL IVP SCH (07:34)
[2018-09-14] MEDS: LISINOPRIL 20 MG TABLET PO SCH (07:35)
[2018-09-14] MEDS: PANTOPRAZOLE 40 MG TABLET. PO SCH (07:35)
[2018-09-14] MEDS: METOPROLOL SUCC 24HR ER 50 MG TAB.ER.24H. PO SCH (07:35)
[2018-09-14] MEDS: DOXYCYCLINE HYCLATE 100 MG TABLET PO SCH ×2 (07:35→21:12)
[2018-09-14] MEDS: POTASSIUM CHLORIDE 10 MEQ TABLET.ER. PO SCH (07:35)
[2018-09-14] MEDS: SERTRALINE 25 MG TABLET. PO SCH (07:35)
--- NOTE | 2018-09-14 07:48 | RAD ---
Examination: VENOUS LOWER EXTREMITY LEFT History: Swelling Comparison/Correlation: None FINDINGS: Bilateral lower extremity duplex venous ultrasound exam was performed. Grayscale, color Doppler, and spectral Doppler imaging was performed. Compression and augmentation was performed. The left common femoral vein, superficial femoral vein, popliteal vein, posterior tibial veins, peroneal veins, and greater saphenous vein are normal with no evidence of deep venous thrombus. Normal compressibility and augmentation is evident. IMPRESSION: Normal left lower extremity duplex ultrasound exam. No evidence of deep venous thrombus involving the left lower extremity. Electronically signed by: Anuj Green MD (09/14/2018 7:45 AM) [facility]
[2018-09-14] MEDS ORDERED: NON FORMULARY ITEM (Zolpidem Tartrate 10 MG) PO SCH (09:00)
[2018-09-14] MEDS ORDERED: ZOLPIDEM 5 MG TABLET. PO PRN (09:45)
[2018-09-14 11:31] VITALS: BP 137/55
[2018-09-14] MEDS ORDERED: IOHEXOL 350 MG/ML 100 ML VIAL. IV ONE (13:00)
[2018-09-14 15:07] VITALS: BP 153/60
--- NOTE | 2018-09-14 15:10 | RAD ---
Examination: CT ANGIOGRAPHY CHEST History: Shortness of breath and elevated d-dimer Comparison/Correlation: 01/18/2013 CT chest without contrast, 08/26/2012 CTA of the chest Findings: Axial images of chest were obtained following IV contrast according to pulmonary arteriography protocol. MIP images provided. Sagittal and coronal reformatted images provided. Pulmonary arterial vasculature is normal with no thromboembolic disease. Biapical pleural thickening is present. Patchy groundglass infiltrate involves the anterior left mid thoracic region near the pleura. Left lower lobe groundglass patchy infiltrates are also present particularly within the superior aspect. Centrilobular emphysematous involvement of the lung rivas is present. There are no enlarged thoracic lymph nodes. Calcific involvement of the thoracic aorta is present. Right upper lung nodule measuring 0.8 cm x 0.4 cm present on axial image 28. Large hiatal hernia is present. Right renal cyst is present. Retrocrural lymph node is present but not enlarged. Impression: No pulmonary arterial thromboembolic disease. Groundglass infiltrates are present particularly at the left lower lobe. Right midthoracic pulmonary nodule. Interval follow-up to assess resolution is recommended. Large hiatal hernia. PQRS Compliance Statement: One or more of the following individualized dose reduction techniques were utilized for this examination: 1. Automated exposure control 2. Adjustment of the mA and/or kV according to patient size 3. Use of iterative reconstruction technique Electronically signed by: Anuj Green MD (09/14/2018 3:07 PM) [facility]
[2018-09-14] MEDS: IPRATRPIUM/ALBUTEROL 0.5/2.5MG 3 ML NEBU. NEB PRN (15:32)
[2018-09-14] MEDS: ENOXAPARIN 30 MG/0.3 ML SYRINGE. SQ SCH (17:17)
[2018-09-14 19:08] VITALS: BP 137/61
[2018-09-14] MEDS: LACTOBACILLUS RHAMNOSUS GG 1 CAPSULE. PO SCH (21:13)
[2018-09-14] MEDS: ZOLPIDEM 5 MG TABLET. PO SCH (21:13)
[2018-09-14] MEDS: AZITHROMYCIN 250 MG TABLET. PO SCH (21:13)
[2018-09-14] MEDS: MONTELUKAST 10 MG TABLET. PO SCH (21:13)
--- NOTE | 2018-09-14 22:21 | PN ---
DATE: 09/14/2018 SUBJECTIVE: The patient is resting, slightly propped up in bed, continued to complain of shortness of breath. Her chest x-ray was unremarkable and showed no acute cardiopulmonary process, moderate sized hiatal hernia. Her left leg was swollen, but we did venous Doppler ultrasound that was negative for DVT and therefore, I decided to arrange for a CT scan of the chest with PE protocol to eliminate the possibility of pulmonary emboli given that she is known to have congestive heart failure. PHYSICAL EXAMINATION: GENERAL: When I examined her this morning, she was resting, slightly propped up in bed, pale, cachectic, slightly tachypneic, but no jaundice, cyanosis, or thyromegaly. No jugular venous distension. No limb edema. VITAL SIGNS: Her heart rate was 69, blood pressure was 137/55, temperature was 97.8, respiratory rate was 22 and oxygen saturation was 93% on 2 liters of oxygen by nasal cannula. HEAD, EYES, EARS, NOSE AND THROAT: Showed normocephalic, atraumatic. NECK: Supple. HEART: Showed normal first and second heart sounds. No gallop, rub or murmur. CHEST: Shows central trachea, equal bilateral expansion and air entry. I could not really appreciate any crepitation or rhonchi. ABDOMEN: Scaphoid, soft, nontender. NEUROLOGIC: She was awake, alert. All her cranial nerves are intact. She moves extremities without difficulty. She ambulates with a walker. Her intake and output were incompletely recorded. LABORATORY DATA: In fact, she has no lab work this morning. However, yesterday, her white cell count was 6700, hemoglobin 14, hematocrit 42, MCV 88 and platelet count 280,000. Her chemistry showed that her serum sodium was 134, potassium 4.6, chloride 95, bicarbonate 36, anion gap of 3, BUN 13, creatinine 0.6, estimated GFR was 95 mL per minute. Her glucose was 123, calcium 9.9. Total bilirubin, AST, ALT, alkaline phosphatase were normal. Beta natriuretic peptide was 1634. Total protein was 7.3, albumin 3.6. ASSESSMENT: This is an 83-year-old female patient who was admitted with [id number] hypoxic hypercapnic respiratory failure, chronic obstructive pulmonary disease exacerbation. Other medical problems include hypertension, hyperlipidemia, hypothyroidism. She has also chronic systolic congestive heart failure and aortic stenosis. MYKE SCHREIBER MD DR: Odilon JOB#: [id number] / [id number]
[2018-09-14 22:38] VITALS: BP 182/72
[2018-09-15] MEDS: LEVOTHYROXINE 25 MCG TABLET. PO SCH (06:05)
[2018-09-15 06:11] LABS: HEMATOCRIT 37.6 % (36.0-47.0); HEMOGLOBIN 12.6 g/dL (12.0-15.5); RED BLOOD COUNT 4.31 x10^6/uL (3.50-5.40); RED CELL DISTRIBUTION WIDTH 12.8 % (11.5-14.5); WHITE BLOOD COUNT 10.1 x10^3/uL (4.0-11.0)
[2018-09-15 06:14] VITALS: BP 178/83
[2018-09-15 06:15] LABS: CALCIUM 9.4 mg/dL (8.5-10.1); CREATININE 0.6 mg/dL (0.6-1.0); POTASSIUM 4.3 mmol/L (3.5-5.1)
[2018-09-15] MEDS: methylPREDNISolone SOD SUCC PF 40 MG/ML VIAL. IV SCH ×2 (08:11→19:47)
[2018-09-15] MEDS: FUROSEMIDE 20 MG/2 ML VIAL IVP SCH (08:11)
[2018-09-15] MEDS: SERTRALINE 25 MG TABLET. PO SCH (08:11)
[2018-09-15] MEDS: LISINOPRIL 20 MG TABLET PO SCH (08:12)
[2018-09-15] MEDS: LACTOBACILLUS RHAMNOSUS GG 1 CAPSULE. PO SCH ×2 (08:12→19:47)
[2018-09-15] MEDS: POTASSIUM CHLORIDE 10 MEQ TABLET.ER. PO SCH (08:12)
[2018-09-15] MEDS: DOXYCYCLINE HYCLATE 100 MG TABLET PO SCH ×2 (08:12→19:48)
[2018-09-15] MEDS: PANTOPRAZOLE 40 MG TABLET. PO SCH (08:12)
[2018-09-15] MEDS: METOPROLOL SUCC 24HR ER 50 MG TAB.ER.24H. PO SCH (08:13)
[2018-09-15] MEDS ORDERED: LORazepam 0.5 MG TABLET PO PRN (09:45)
[2018-09-15 11:07] VITALS: BP 172/53
[2018-09-15] MEDS ORDERED: amLODIPine BESYLATE 10 MG TABLET PO ONE (15:30)
[2018-09-15 15:44] VITALS: BP 199/63
[2018-09-15 17:41] VITALS: BP 138/75
[2018-09-15] MEDS: ENOXAPARIN 30 MG/0.3 ML SYRINGE. SQ SCH (17:45)
[2018-09-15] MEDS: AZITHROMYCIN 250 MG TABLET. PO SCH (19:47)
[2018-09-15] MEDS: MONTELUKAST 10 MG TABLET. PO SCH (19:48)
[2018-09-15] MEDS: ZOLPIDEM 5 MG TABLET. PO SCH (19:54)
[2018-09-15 23:18] VITALS: BP 143/79
[2018-09-16 05:34] VITALS: BP 155/59
[2018-09-16] MEDS: LEVOTHYROXINE 25 MCG TABLET. PO SCH (06:05)
[2018-09-16] MEDS: methylPREDNISolone SOD SUCC PF 40 MG/ML VIAL. IV SCH (08:35)
[2018-09-16] MEDS: FUROSEMIDE 20 MG/2 ML VIAL IVP SCH (08:36)
[2018-09-16] MEDS: LACTOBACILLUS RHAMNOSUS GG 1 CAPSULE. PO SCH (08:37)
[2018-09-16] MEDS: PANTOPRAZOLE 40 MG TABLET. PO SCH (08:37)
[2018-09-16] MEDS: POTASSIUM CHLORIDE 10 MEQ TABLET.ER. PO SCH (08:37)
[2018-09-16] MEDS: SERTRALINE 25 MG TABLET. PO SCH (08:37)
[2018-09-16] MEDS: LISINOPRIL 20 MG TABLET PO SCH (08:38)
[2018-09-16] MEDS: METOPROLOL SUCC 24HR ER 50 MG TAB.ER.24H. PO SCH (08:38)
[2018-09-16] MEDS: DOXYCYCLINE HYCLATE 100 MG TABLET PO SCH (08:40)
[2018-09-16] MEDS: IPRATRPIUM/ALBUTEROL 0.5/2.5MG 3 ML NEBU. NEB PRN (08:51)
[2018-09-16] MEDS ORDERED: amLODIPine BESYLATE 10 MG TABLET PO SCH (09:00)
[2018-09-16 09:15] VITALS: BP 153/64
[2018-09-16 10:34] VITALS: BP 142/60
[2018-09-16] MEDS ORDERED: ASPIRIN 81 MG TAB.CHEW PO ONE (12:00)
--- NOTE | 2018-09-16 15:04 | PN ---
DATE: SUBJECTIVE: The patient is resting, slightly propped up in bed, in no apparent distress. She had had no further complaint of shortness of breath, cough or phlegm, but complained of sudden weakness and numbness of her left lower extremity and inability to walk. Denied any headache, denied any blurring of vision. Denied any tingling, numbness or weakness in her left upper extremity. She is apparently known to have 84% stenosis of the proximal right cervical internal carotid artery secondary to calcified atheromatous plaques at the carotid bifurcation. There is also 68% stenosis involving the proximal left cervical internal carotid artery stenosis due to calcified atheromatous plaque at the carotid bifurcation. There is a focal high-grade stenosis involving the right posterior cerebral artery and cranial atherosclerotic changes noted. There is a 7.7 x 5 mm solid noncalcified pulmonary nodule in the right upper lobe on the CT scan done on 06/10/2018. PHYSICAL EXAMINATION: GENERAL: When I examined her this morning, she looked well and was clearly in no apparent respiratory distress. No pallor, jaundice, cyanosis, or thyromegaly. No jugular venous distension. No lower limb edema. VITAL SIGNS: Her heart rate was 59, blood pressure was 142/60, temperature was 97.6, respiratory rate was 22 and oxygen saturation was 98%. HEAD, EYES, EARS, NOSE AND THROAT: Showed normocephalic, atraumatic. NECK: Supple. HEART: Showed normal first and second heart sounds with no gallop, rub or murmur. CHEST: Clear to auscultation. No crepitation or rhonchi. ABDOMEN: Scaphoid, soft, nontender. NEUROLOGIC: She is awake, alert, responding appropriately. All cranial nerves intact. The upper extremity strength is normal. She definitely has weakness and difficulty walking. She is veering towards the left side. She has had a CT angio of the neck done on 06/10/2018, which showed that she has 84% stenosis of the right internal carotid artery. PLAN: My plan is to arrange for her to have a CT scan of the head. We will consult : Ashlie and probably need to be transferred to [facility] to see whether she is a candidate for carotid endarterectomy. MYKE SCHREIBER MD DR: TATYANA/aditi JOB#: [id number] / [id number]
== END 2018-09-16 13:00 | disposition short-term general hospital (02) | DRG 291 ==
LOC: ER 12:53 → 1 SOUTH 14:10
PROVIDERS: ADMIT Internal Medicine; ATTEND Internal Medicine
DX: I11.0 Hypertensive heart disease with heart failure (principal); J96.21 Acute and chronic respiratory failure with hypoxia; J96.22 Acute and chronic respiratory failure with hypercapnia; J44.1 Chronic obstructive pulmonary disease with (acute) exacerbation; I50.23 Acute on chronic systolic (congestive) heart failure; R91.1 Solitary pulmonary nodule; E03.9 Hypothyroidism, unspecified; E78.00 Pure hypercholesterolemia, unspecified; F32.9 Major depressive disorder, single episode, unspecified; E78.5 Hyperlipidemia, unspecified; I25.2 Old myocardial infarction; I35.0 Nonrheumatic aortic (valve) stenosis; I65.22 Occlusion and stenosis of left carotid artery; I66.21 Occlusion and stenosis of right posterior cerebral artery; K44.9 Diaphragmatic hernia without obstruction or gangrene; Z87.891 Personal history of nicotine dependence; Z90.49 Acquired absence of other specified parts of digestive tract; Z98.41 Cataract extraction status, right eye; Z98.42 Cataract extraction status, left eye
CPT/HCPCS: 36415; 36600; 71045; 71275; 80048; 80053; 81001; 82803; 83880; 84443; 84484; 85025; 85027; 87040; 87086; 93005; 93971; 94640; 94760; 96365; 96375; J0456; J0696; J1650; J2920; J2930; J3490; J7620; Q9967; 97110; 97535; 99285-25

== ENCOUNTER 2018-09-23 13:42 | Inpatient (IN) | payer MEDICARE ==
[~2018-09-23] VITALS: Ht 144.8 cm; Wt 43.6 kg
[2018-09-23 13:54] VITALS: BP 177/73
[2018-09-23] MEDS ORDERED: ZOLP5TAB PO (14:41)
[2018-09-23] MEDS ORDERED: ZOLPIDEM 5 MG TABLET. PO PRN (14:45)
[2018-09-23] MEDS ORDERED: ATOR40TA59 PO (14:54)
[2018-09-23] MEDS ORDERED: OXYC1TAB15 PO (14:54)
[2018-09-23] MEDS ORDERED: GUAI600T47 PO (14:54)
[2018-09-23] MEDS ORDERED: MONT10TA80 PO (14:54)
[2018-09-23] MEDS ORDERED: OMEP40CA5 PO (14:54)
[2018-09-23] MEDS ORDERED: ENOX40DI SQ (14:54)
[2018-09-23] MEDS ORDERED: CLOP75TA57 PO (14:54)
[2018-09-23] MEDS ORDERED: PRED20TA PO (14:54)
[2018-09-23] MEDS ORDERED: ASPI-630 PO (14:54)
[2018-09-23] MEDS ORDERED: IPRA3AMP29 NEB (14:54)
[2018-09-23] MEDS: IPRATRPIUM/ALBUTEROL 0.5/2.5MG 3 ML NEBU. NEB SCH ×2 (16:00→19:16)
[2018-09-23] MEDS: LORazepam 0.5 MG TABLET PO PRN ×2 (17:30→22:31)
[2018-09-23] MEDS ORDERED: POLYETHYLENE GLYCOL 3350 17 GM PACKET. PO PRN (17:45)
[2018-09-23 18:16] VITALS: BP 127/77
[2018-09-23] MEDS: MONTELUKAST 10 MG TABLET. PO SCH (21:17)
[2018-09-23] MEDS: DOCUSATE SODIUM 100 MG CAPSULE PO SCH (21:17)
[2018-09-23] MEDS: ATORVASTATIN CALCIUM 20 MG TABLET PO SCH (21:18)
[2018-09-24] MEDS: IPRATRPIUM/ALBUTEROL 0.5/2.5MG 3 ML NEBU. NEB SCH ×4 (05:07→20:13)
[2018-09-24 06:11] VITALS: BP 163/71
[2018-09-24] MEDS: LEVOTHYROXINE 25 MCG TABLET. PO SCH (06:25)
[2018-09-24 06:26] VITALS: BP 127/74
[2018-09-24] MEDS: LORazepam 0.5 MG TABLET PO PRN ×3 (08:33→23:08)
[2018-09-24] MEDS: ASPIRIN 81 MG TAB.CHEW PO SCH (08:33)
[2018-09-24] MEDS: DOCUSATE SODIUM 100 MG CAPSULE PO SCH (08:33)
[2018-09-24] MEDS: CLOPIDOGREL BISULFATE 75 MG TABLET PO SCH (08:33)
[2018-09-24] MEDS: PANTOPRAZOLE 40 MG TABLET. PO SCH (08:34)
[2018-09-24] MEDS: predniSONE 20 MG TABLET PO SCH (08:34)
[2018-09-24] MEDS: POTASSIUM CHLORIDE 10 MEQ TABLET.ER. PO SCH (08:37)
[2018-09-24 08:46] LABS: CALCIUM 9.4 mg/dL (8.5-10.1); CREATININE 0.5 mg/dL (0.6-1.0); GFR 117.3; POTASSIUM 4.2 mmol/L (3.5-5.1)
[2018-09-24] MEDS ORDERED: ENOXAPARIN 30 MG/0.3 ML SYRINGE. SQ SCH (09:00)
[2018-09-24] MEDS ORDERED: LISINOPRIL 20 MG TABLET PO SCH (09:00)
--- NOTE | 2018-09-24 12:21 | PDOC ---
SUBJECTIVE: CC: Generalized Weakness vague complaints Did not sleep well Chronically SOB OBJECTIVE: HEENT: PERRLA Neck supple Lungs: shallow respirations CV: RRR , no gallops Abd: soft, scaphoid Ext: No edema Neuro: profoundly deaf. Vital Signs/I&O: Vital Signs Date Time Temp Pulse Resp B/P (MAP) Pulse Ox O2 Delivery O2 Flow Rate FiO2 09/24/18 09:52 93 Nasal Cannula 2.0 09/24/18 08:33 84 127/74 09/24/18 06:26 97.7 20 I & O 09/23/18 09/23/18 09/24/18 15:00 23:00 07:00 Intake Total 170 ml Output Total 300 ml 650 ml Balance -130 ml -650 ml Labs: Laboratory Tests Test 09/24/18 08:15 Sodium Level 128 mmol/L (136-145) L Potassium Level 4.2 mmol/L (3.5-5.1) Chloride Level 90 mmol/L (98-107) L Carbon Dioxide Level 31 mmol/L (21-32) Anion Gap 7 (6-14) Blood Urea Nitrogen 10 mg/dL (7-20) Creatinine 0.5 mg/dL (0.6-1.0) L Estimated GFR (Cockcroft-Gault) 117.3 Glucose Level 114 mg/dL (70-99) H Calcium Level 9.4 mg/dL (8.5-10.1) ASSESSMENT: Acute on Chronic Respiratory failure Hyponatremia secodary to DAV inh Generalized Debilitation Insomnia 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
[2018-09-24] MEDS: oxyCODONE/APAP 5/325 1 TAB TABLET PO PRN ×2 (13:43→21:01)
[2018-09-24 17:55] VITALS: BP 94/57
[2018-09-24] MEDS: MONTELUKAST 10 MG TABLET. PO SCH (21:00)
[2018-09-24] MEDS: ATORVASTATIN CALCIUM 20 MG TABLET PO SCH (21:02)
[2018-09-25] MEDS: IPRATRPIUM/ALBUTEROL 0.5/2.5MG 3 ML NEBU. NEB SCH ×4 (05:06→20:15)
[2018-09-25 05:33] VITALS: BP 145/67
[2018-09-25] MEDS: LEVOTHYROXINE 25 MCG TABLET. PO SCH (06:30)
[2018-09-25] MEDS: PANTOPRAZOLE 40 MG TABLET. PO SCH (09:17)
[2018-09-25] MEDS: CLOPIDOGREL BISULFATE 75 MG TABLET PO SCH (09:17)
[2018-09-25] MEDS: DOCUSATE SODIUM 100 MG CAPSULE PO SCH (09:18)
[2018-09-25] MEDS: POTASSIUM CHLORIDE 10 MEQ TABLET.ER. PO SCH (09:18)
[2018-09-25] MEDS: ASPIRIN 81 MG TAB.CHEW PO SCH (09:18)
[2018-09-25] MEDS: predniSONE 20 MG TABLET PO SCH (09:18)
[2018-09-25] MEDS: oxyCODONE/APAP 5/325 1 TAB TABLET PO PRN ×2 (09:23→15:13)
[2018-09-25] MEDS: LORazepam 0.5 MG TABLET PO PRN ×2 (09:23→15:26)
--- NOTE | 2018-09-25 13:12 | HP ---
ADMIT DATE: 09/23/2018 CHIEF COMPLAINT: Weakness and shortness of breath. The patient was admitted to the [facility]. HISTORY OF PRESENT ILLNESS: The patient, age 83, has underlying heart disease and COPD. She is chronically short of breath, has trouble sleeping at night and has lost weight. At one time, she weighed 130 pounds, she is now down to 92 pounds. She is a small lady. She is only 4 feet 9 inches tall. She is chronically short of breath and she is weak and tired. She is very hard of hearing and she is not a very good historian. She has chronic heart failure and chronic respiratory failure. In addition, she has hypothyroidism, generalized anxiety, gastroesophageal reflux disease, and insomnia. CURRENT MEDICATIONS: Include albuterol, aspirin, Lipitor, Plavix, Colace, Mucinex, Synthroid, Ativan, Singulair, Percocet, Protonix, MiraLax, potassium 20 mEq, prednisone daily, Ambien, and lisinopril 40 mg daily. ALLERGIES: She has no known drug allergies. SOCIAL HISTORY: She was a smoker up to 14 years ago. She is a DNR per advanced directives. FAMILY HISTORY: Noncontributory. REVIEW OF SYSTEMS: Significant for generalized weakness, chronic shortness of breath with dyspnea, minimal cough, no fevers, chills, palpitations. No nausea, vomiting or diarrhea. All other systems reviewed and determined to be negative. PHYSICAL EXAMINATION: GENERAL: When I saw her, this is a pleasant elderly female. VITAL SIGNS: Her initial vital signs showed a blood pressure of 110/70, her pulse is 78 and regular. She was afebrile. HEENT: Head is without trauma. Pupils are reactive. Sclerae nonicteric. Oropharynx clear. Mucous membranes moist. NECK: Supple. No bruits identified. LUNGS: Diffuse wheezing bilaterally. CARDIOVASCULAR: Regular heart tones. No obvious gallops. Peripheral pulses are palpable and full. ABDOMEN: Soft, scaphoid, nontender, no organomegaly. Bowel sounds were hypoactive. EXTREMITIES: Showed no cyanosis or edema. NEUROLOGIC: Findings focally intact. No deficit. She is very hard of hearing. LABORATORY DATA: Admission sodium is 128 mEq per liter. Creatinine is within normal range. IMPRESSION: 1. This 83-year-old female has acute on chronic respiratory failure. 2. Chronic obstructive pulmonary disease. 3. Hyponatremia, asymptomatic due to lisinopril. 4. Generalized debilitation. 5. 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 6. Insomnia. PLAN: 1. Meds reviewed. 2. I will hold her lisinopril for now. 3. Restoril in place of the Ambien. 4. Encourage oral intake. 5. Follow up serial chemistries. 6. We will check daily weights. CHEPE FRAUSTO MD DR: JOSE/aditi JOB#: [id number] / [id number] MYKE Sierra MD
--- NOTE | 2018-09-25 14:11 | PN ---
DATE: 09/25/2018 ATTENDING PHYSICIAN: Dr. Zuniga. CHIEF COMPLAINT: Weakness and shortness of breath. SUBJECTIVE: She slept much better last night. The Restoril in lieu of Ambien has worked well for her. She is awake and she feels a bit stronger. She is also chronically short of breath. OBJECTIVE: GENERAL: Her weight today is 92 pounds; 10 years ago, she weighed 130 pounds. HEENT: Head is without trauma. Pupils are reactive. Sclerae is nonicteric. NECK: Supple. LUNGS: Minimal wheezing and shallow respirations. CARDIOVASCULAR: Showed distant heart tones, regular rhythm. No obvious gallops. ABDOMEN: Soft and scaphoid. No organomegaly. Bowel sounds are normoactive. EXTREMITIES: Showed no edema. NEUROLOGIC: Alert, profoundly deaf. VITAL SIGNS: Her blood pressure today is 145/67. She is afebrile, pulse is 78 and regular. LABORATORY DATA: Chemistry on admission shows sodium 128. Followup chemistry is pending. ASSESSMENT: 1. An 83-year-old female with acute on chronic respiratory failure. 2. Hyponatremia due to DAV inhibitor. 3. Generalized debilitation, improved. 4. Insomnia, improved with the restoril. 5. Presbycusis. 6. Underlying chronic obstructive pulmonary disease. PLAN: 1. We have held her lisinopril for now. 2. Restoril in place of Ambien has helped. 3. Encourage oral intake. 4. Followup chemistry is pending at this time. CHEPE FRAUSTO MD DR: JOSE/aditi JOB#: [id number] / [id number]
[2018-09-25 18:04] VITALS: BP 105/64
[2018-09-25] MEDS: ATORVASTATIN CALCIUM 20 MG TABLET PO SCH (21:55)
[2018-09-25] MEDS: MONTELUKAST 10 MG TABLET. PO SCH (21:56)
[2018-09-25] MEDS: TEMAZEPAM 7.5 MG CAPSULE PO SCH (21:56)
[2018-09-26] MEDS: IPRATRPIUM/ALBUTEROL 0.5/2.5MG 3 ML NEBU. NEB SCH ×4 (05:14→20:12)
[2018-09-26 05:41] VITALS: BP 145/72
[2018-09-26] MEDS: LEVOTHYROXINE 25 MCG TABLET. PO SCH (06:18)
[2018-09-26] MEDS: LORazepam 0.5 MG TABLET PO PRN ×3 (06:21→23:54)
[2018-09-26] MEDS: predniSONE 20 MG TABLET PO SCH (08:21)
[2018-09-26] MEDS: PANTOPRAZOLE 40 MG TABLET. PO SCH (08:21)
[2018-09-26] MEDS: DOCUSATE SODIUM 100 MG CAPSULE PO SCH (08:21)
[2018-09-26] MEDS: POTASSIUM CHLORIDE 10 MEQ TABLET.ER. PO SCH (08:21)
[2018-09-26] MEDS: CLOPIDOGREL BISULFATE 75 MG TABLET PO SCH (08:21)
[2018-09-26] MEDS: ASPIRIN 81 MG TAB.CHEW PO SCH (08:21)
[2018-09-26 10:20] LABS: ALBUMIN 2.9 g/dL (3.4-5.0); CREATININE 0.7 mg/dL (0.6-1.0); GFR 79.5; POTASSIUM 4.1 mmol/L (3.5-5.1); TOTAL BILIRUBIN 0.5 mg/dL (0.2-1.0); TOTAL PROTEIN 5.9 g/dL (6.4-8.2)
[2018-09-26] MEDS: oxyCODONE/APAP 5/325 1 TAB TABLET PO PRN (18:29)
[2018-09-26 18:31] VITALS: BP 126/65
--- NOTE | 2018-09-26 18:31 | PN ---
DATE: 09/26/2018 ATTENDING PHYSICIAN: Dr. Zuniga. CHIEF COMPLAINT: Weakness and shortness of breath. SUBJECTIVE: The patient once again slept better with the Restoril. She has frequent urination at night. She remains chronically short of breath on supplemental oxygen at all times. OBJECTIVE FINDINGS: VITAL SIGNS: Her blood pressure today is 145/72 mmHg, pulse is 87 and regular. She is afebrile. Her oxygen saturations are 96% on just 2 liters of supplemental oxygen per nasal cannula. HEENT: Head is without trauma. Pupils are reactive. Sclerae nonicteric. The oropharynx is clear. NECK: Supple. No bruit. LUNGS: Diffuse wheezing in the upper airways, shallow respirations. CARDIOVASCULAR: Showed distant heart tones, regular rhythm. No obvious gallops. Peripheral pulses are palpable. ABDOMEN: Soft, scaphoid. No organomegaly. Bowel sounds are normoactive. EXTREMITIES: Showed no edema. NEUROLOGIC FINDINGS: The patient is alert. She remains profoundly deaf. LABORATORY DATA: Chemistry panel for followup on her serum sodium level is pending at this time. ASSESSMENT: 1. An 83-year-old female with acute on chronic respiratory failure. 2. Hyponatremia due to DAV inhibitor. 3. Hypotension, related to her DAV inhibitor, which has been held since admission. 4. Generalized debilitation, improved. 5. Insomnia, improved. 6. Presbycusis. 7. Underlying chronic obstructive pulmonary disease. PLAN: 1. We will continue to hold her lisinopril. Her blood pressure is quite stable off of the antihypertensives. 2. Restoril in place of Ambien for insomnia. 3. Encourage oral calorie intake. 4. Followup can be pending today. CHEPE FRAUSTO MD DR: JOSE/aditi JOB#: [id number] / [id number]
[2018-09-26] MEDS: TEMAZEPAM 7.5 MG CAPSULE PO SCH (21:25)
[2018-09-26] MEDS: ATORVASTATIN CALCIUM 20 MG TABLET PO SCH (21:26)
[2018-09-26] MEDS: MONTELUKAST 10 MG TABLET. PO SCH (21:26)
[2018-09-27 05:20] VITALS: BP 126/71
[2018-09-27] MEDS: LORazepam 0.5 MG TABLET PO PRN ×3 (05:22→17:47)
[2018-09-27] MEDS: LEVOTHYROXINE 25 MCG TABLET. PO SCH (05:22)
[2018-09-27] MEDS: IPRATRPIUM/ALBUTEROL 0.5/2.5MG 3 ML NEBU. NEB SCH ×4 (05:28→20:29)
[2018-09-27] MEDS: CLOPIDOGREL BISULFATE 75 MG TABLET PO SCH (08:05)
[2018-09-27] MEDS: predniSONE 20 MG TABLET PO SCH (08:05)
[2018-09-27] MEDS: DOCUSATE SODIUM 100 MG CAPSULE PO SCH (08:05)
[2018-09-27] MEDS: ASPIRIN 81 MG TAB.CHEW PO SCH (08:05)
[2018-09-27] MEDS: POTASSIUM CHLORIDE 10 MEQ TABLET.ER. PO SCH (08:05)
[2018-09-27] MEDS: PANTOPRAZOLE 40 MG TABLET. PO SCH (08:05)
--- NOTE | 2018-09-27 11:47 | PN ---
DATE: 09/27/2018 ATTENDING PHYSICIAN: Dr. Zuniga. CHIEF COMPLAINT: Weakness and shortness of breath. SUBJECTIVE: The patient did not sleep as well, even though she took the Restoril. She still has frequent urination. She is chronically short of breath. She remains quite hard of hearing. She is on supplemental oxygen at all times. OBJECTIVE FINDINGS: VITAL SIGNS: Blood pressure off of lisinopril remains stable at 126/71. Serum sodium is up to 132 mEq per liter. HEENT: Head is without trauma. Pupils are reactive. Sclerae nonicteric. NECK: Supple, no bruits. LUNGS: Coarse rhonchi in the upper airways with shallow respirations. CARDIOVASCULAR: Showed distant heart tones. No obvious gallops. Peripheral pulses palpable and full. ABDOMEN: Scaphoid. No organomegaly. Bowel sounds are normoactive. EXTREMITIES: Show no edema. NEUROLOGIC: Very hard of hearing. The patient is alert. ASSESSMENT: 1. An 83-year-old female with acute on chronic respiratory failure. 2. Profound oxygen dependent chronic obstructive pulmonary disease. 3. Hyponatremia due to DAV inhibitor corrected since we stopped it. 4. Hypotension, related to DAV inhibitor, normotensive since it has been held. 5. Generalized debilitation. 6. Insomnia, improved. 7. Presbycusis. PLAN: 1. We will continue to hold her lisinopril, which she does not need it at this time. 2. Restoril in place of Ambien. 3. Encourage oral intake. 4. Physical therapy recommendations. CHEPE FRAUSTO MD DR: JOSE/aditi JOB#: [id number] / [id number]
[2018-09-27] MEDS: oxyCODONE/APAP 5/325 1 TAB TABLET PO PRN ×2 (17:47→22:12)
[2018-09-27 18:37] VITALS: BP 168/68
[2018-09-27] MEDS: ATORVASTATIN CALCIUM 20 MG TABLET PO SCH (21:23)
[2018-09-27] MEDS: TEMAZEPAM 7.5 MG CAPSULE PO SCH (21:23)
[2018-09-27] MEDS: MONTELUKAST 10 MG TABLET. PO SCH (21:23)
[2018-09-27 22:42] VITALS: BP 109/66
[2018-09-28] MEDS: oxyCODONE/APAP 5/325 1 TAB TABLET PO PRN ×2 (02:48→07:48)
[2018-09-28] MEDS: IPRATRPIUM/ALBUTEROL 0.5/2.5MG 3 ML NEBU. NEB SCH ×2 (05:11→10:54)
[2018-09-28 06:35] VITALS: BP 85/57
[2018-09-28] MEDS: LEVOTHYROXINE 25 MCG TABLET. PO SCH (06:41)
[2018-09-28 06:58] VITALS: BP 152/72
[2018-09-28] MEDS: PANTOPRAZOLE 40 MG TABLET. PO SCH (07:30)
[2018-09-28] MEDS: POTASSIUM CHLORIDE 10 MEQ TABLET.ER. PO SCH (08:00)
[2018-09-28] MEDS: CLOPIDOGREL BISULFATE 75 MG TABLET PO SCH (08:00)
[2018-09-28] MEDS: ASPIRIN 81 MG TAB.CHEW PO SCH (08:00)
[2018-09-28] MEDS ORDERED: ONDANSETRON ODT 4 MG TAB.RAPDIS PO PRN (08:15)
[2018-09-28] MEDS: predniSONE 20 MG TABLET PO SCH (09:00)
[2018-09-28] MEDS ORDERED: LIDOCAINE (700MG/PATCH) PATCH. TD SCH (09:00)
[2018-09-28] MEDS: DOCUSATE SODIUM 100 MG CAPSULE PO SCH (09:00)
[2018-09-28 09:20] VITALS: BP 136/82
[2018-09-28 09:44] LABS: BASO % 0 % (0-3); EOS % 0 % (0-3); HEMATOCRIT 36.9 % (36.0-47.0); HEMOGLOBIN 12.1 g/dL (12.0-15.5); LYMPH # 0.7 x10^3/uL (1.0-4.8); LYMPH % 4 % (24-48); MEAN CORPUSCULAR HEMOGLOBIN 29 pg (25-35); MEAN CORPUSCULAR HGB CONC 33 g/dL (31-37); MEAN CORPUSCULAR VOLUME 89 fL (79-100); MONO # 1.1 x10^3/uL (0.0-1.1); MONO % 7 % (0-9); NEUT # 15.6 x10^3uL (1.8-7.7); NEUT % 89 % (31-73); PLATELET COUNT 380 x10^3/uL (140-400); RED BLOOD COUNT 4.14 x10^6/uL (3.50-5.40); RED CELL DISTRIBUTION WIDTH 12.9 % (11.5-14.5); WHITE BLOOD COUNT 17.5 x10^3/uL (4.0-11.0)
[2018-09-28 09:55] LABS: ALBUMIN 3.2 g/dL (3.4-5.0); CALCIUM 9.4 mg/dL (8.5-10.1); CREATININE 0.6 mg/dL (0.6-1.0); POTASSIUM 4.1 mmol/L (3.5-5.1); TOTAL BILIRUBIN 0.6 mg/dL (0.2-1.0); TOTAL PROTEIN 6.4 g/dL (6.4-8.2)
[2018-09-28] MEDS ORDERED: MORPHINE SULFATE 4 MG/ML DISP.SYRIN. IM ONE (10:00)
[2018-09-28] MEDS ORDERED: MORPHINE SULFATE 4 MG/ML DISP.SYRIN. IV ONE (10:15)
[2018-09-28 10:29] VITALS: BP 94/57
[2018-09-28 10:49] LABS: % BANDS 0 % (0-9); % BASOS 0 % (0-3); % EOS 1 % (0-5); % LYMPHS 3 % (24-48); % MONOS 1 % (0-10); % SEGS 95 % (35-66); PLT ESTIMATE ADEQUATE (ADEQUATE)
[2018-09-28] MEDS: ONDANSETRON PF 4 MG/2 ML VIAL. IV PRN ×2 (12:45→18:29)
[2018-09-28 13:04] VITALS: BP 134/72
[2018-09-28] MEDS: MORPHINE SULFATE 2 MG/ML DISP.SYRIN. IV PRN ×2 (13:04→17:53)
[2018-09-28] MEDS ORDERED: SCOPOLAMINE 1.5MG PATCH. TD SCH (17:00)
[2018-09-28] MEDS ORDERED: PROCHLORPERAZINE 10 MG/2 ML VIAL. IM PRN (17:00)
[2018-09-28] MEDS ORDERED: IPRATRPIUM/ALBUTEROL 0.5/2.5MG 3 ML NEBU. NEB PRN (17:15)
[2018-09-28] MEDS ORDERED: PROCHLORPERAZINE 10 MG/2 ML VIAL. IV PRN (17:30)
[2018-09-28 19:44] VITALS: BP 130/89
[2018-09-28] MEDS ORDERED: PATCH REMOVAL. MC SCH (21:00)
--- NOTE | 2018-09-28 22:13 | PN ---
DATE: 09/28/2018 ATTENDING PHYSICIAN: Dr. Zuniga SUBJECTIVE: The patient did not sleep well. She states she had a rough night. She has severe intractable low back pain. She was given oral Percocet then she got nauseated and promptly threw up. She remains weak, bedridden and very symptomatic. OBJECTIVE FINDINGS: VITAL SIGNS: Blood pressure is very labile, fluctuating between 80 mmHg and 150 mmHg. She is afebrile. HEENT: Head is without trauma. Pupils are reactive. NECK: Supple. LUNGS: Diffuse wheezing bilaterally. Minimal rhonchi at the bases. CARDIOVASCULAR: Showed distant heart sounds. No gallops. ABDOMEN: Soft, scaphoid, nontender. EXTREMITIES: Show no cyanosis or edema. NEUROLOGIC: Findings focally intact. Speech is fluent. No deficit. ASSESSMENT: 1. An 83-year-old female with acute on chronic respiratory failure. 2. Generalized debilitation. 3. Significant chronic low back pain. 4. Probable osteoporosis and compression fractures. 5. Hyponatremia, corrected. 6. Hypotension with DAV inhibitor stopped. 7. Chronic pain syndrome. 8. Generalized debilitation. 9. 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 PLAN: 1. I have ordered Zofran and pain meds. 2. Bed rest today. 3. Lisinopril has been held. 4. I would recommend a palliative care consultation to help with managing the symptoms of the patient. She is a DNR per advanced directives. CHEPE FRAUSTO MD DR: JOSE/aditi JOB#: [id number] / [id number]
== END 2018-09-28 20:50 | disposition hospice, inpatient (51) | DRG 189 ==
LOC: LND 13:42 → 1 SOUTH 09-27 17:57
PROVIDERS: ADMIT Internal Medicine; ATTEND Internal Medicine
DX: J96.20 Acute and chronic respiratory failure, unspecified whether with hypoxia or hypercapnia (principal); E87.1 Hypo-osmolality and hyponatremia; J44.9 Chronic obstructive pulmonary disease, unspecified; I50.9 Heart failure, unspecified; K21.9 Gastro-esophageal reflux disease without esophagitis; F41.1 Generalized anxiety disorder; G47.00 Insomnia, unspecified; Z66 Do not resuscitate; H91.10 Presbycusis, unspecified ear; G89.4 Chronic pain syndrome; I95.9 Hypotension, unspecified; M81.0 Age-related osteoporosis without current pathological fracture; E03.9 Hypothyroidism, unspecified; T46.4X5A Adverse effect of angiotensin-converting-enzyme inhibitors, initial encounter; Z87.891 Personal history of nicotine dependence; Z74.01 Bed confinement status; Z99.81 Dependence on supplemental oxygen
CPT/HCPCS: 36415; 80048; 80053; 82533; 83605; 84443; 85007; 85025; 85610; 94640; 94760; J0780; J1650; J2270; J2405; J7512; J7620; Q0162; 97110; 97112; 97530; 97535

== ENCOUNTER 2018-09-28 19:44 | Inpatient (IN) | payer OTHER ==
[~2018-09-28] VITALS: Ht 144.8 cm; Wt 43.5 kg
[~2018-09-28 19:44] MED LIST changes: +ASPI-630 PO; +ATOR40TA59 PO; +CLOP75TA57 PO; +ENOX40DI SQ; +GUAI600T47 PO; +IPRA3AMP29 NEB; +MONT10TA80 PO; +OXYC1TAB15 PO; +PRED20TA PO; +ZOLP5TAB PO
[2018-09-28] MEDS ORDERED: PATCH REMOVAL. MC SCH (21:00)
[2018-09-28 21:52] VITALS: BP 130/89
[2018-09-28] MEDS ORDERED: PROCHLORPERAZINE 10 MG/2 ML VIAL. IV PRN (22:15)
[2018-09-28] MEDS ORDERED: ATROPINE 1% OPHTH SOLUTION 5ML BOTTLE. SL PRN (22:15)
[2018-09-28] MEDS ORDERED: ONDANSETRON PF 4 MG/2 ML VIAL. IV PRN (22:15)
[2018-09-29] MEDS: MORPHINE SULFATE 4 MG/ML DISP.SYRIN. IV PRN ×3 (00:08→05:02)
[2018-09-29] MEDS ORDERED: IPRATRPIUM/ALBUTEROL 0.5/2.5MG 3 ML NEBU. ONE (03:36)
[2018-09-29 04:05] VITALS: BP 90/48
[2018-09-29] MEDS ORDERED: IPRATRPIUM/ALBUTEROL 0.5/2.5MG 3 ML NEBU. NEB SCH (08:00)
[2018-09-29] MEDS ORDERED: LIDOCAINE (700MG/PATCH) PATCH. TD SCH (09:00)
--- NOTE | 2018-09-29 16:37 | DS ---
DATE OF DISCHARGE: 09/29/2018 SUMMARY DATE OF EXPIRATION: 09/29/2018. ATTENDING PHYSICIAN: Dr. Zuniga and Dr. Frausto. FINAL DISCHARGE DIAGNOSES AND CAUSE OF : 1. Acute respiratory failure. 2. Chronic respiratory failure. 3. Oxygen-dependent chronic obstructive pulmonary disease. 4. History of chronic systolic congestive heart failure, acute on chronic. 5. Presbycusis. 6. Pulmonary cachexia. 7. Recent stroke with deficit. 8. Generalized debilitation. 9. Hypotension. 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 She was admitted initially to the rehab floor to help with strengthening. She weighed 43 kilograms on the time of admission. PHYSICAL EXAMINATION: Please see the dictated note. PERTINENT LABORATORY AND X-RAY STUDIES: On the database. Her admission sodium was 128 mEq per liter. We held her DAV inhibitor. It came up with subsequent chemistry. COURSE IN THE HOSPITAL: She had further decline of her status. She had been a DNR per advanced directive. She was doing okay for few days, but gradually became worse with increasing pain, shortness of breath and significant nausea. Family was made aware. Hospice Services were asked to see her for palliative care, end of life care. She was made hospice patient. She was given Ativan for anxiety, oxygen, morphine and nausea medication. Shortly on the morning of the sixth hospital day on 09/29/2018, family was at the bedside. The patient succumbed to her illness. She was pronounced early on the morning of 09/29/2018. Total discharge time spent 39 minutes. CHEPE FRAUSTO MD DR: JOSE/aditi JOB#: [id number] / [id number] NENA Clifton AHMED MD
[2018-10-01] MEDS ORDERED: SCOPOLAMINE 1.5MG PATCH. TD SCH (09:00)
== END 2018-09-29 07:25 | disposition expired | DRG 291 ==
LOC: 1 SOUTH 19:44
PROVIDERS: ADMIT Hospitalist; ATTEND Hospitalist
DX: I50.23 Acute on chronic systolic (congestive) heart failure (principal); J96.20 Acute and chronic respiratory failure, unspecified whether with hypoxia or hypercapnia; R64 Cachexia; J44.9 Chronic obstructive pulmonary disease, unspecified; F41.9 Anxiety disorder, unspecified; Z51.5 Encounter for palliative care; J98.4 Other disorders of lung; Z66 Do not resuscitate; H91.10 Presbycusis, unspecified ear; I95.9 Hypotension, unspecified; Z86.73 Personal history of transient ischemic attack (TIA), and cerebral infarction without residual deficits; Z68.20 Body mass index [BMI] 20.0-20.9, adult
CPT/HCPCS: J2060; J2270; Q5005